=== PATIENT | female | born 1930 | race Caucasian/White ===

== ENCOUNTER 2016-12-01 18:42 | Inpatient (IN) | payer MEDICARE, MEDICAID ==
[~2016-12-01] VITALS: Ht 167.6 cm; Wt 91.2 kg
--- NOTE | 2016-12-01 18:45 | NUR ---
PT ADELINA FROM [facility] FOR WORSENING BILATERAL LOWER EXTREMITY SWELLING AND REDNESS X 2 DAYS. DENIES FEVER. DENIES SOB. SATING AT 97% RA. VSS. PT AOOX.3. MD AT FOR EVAL. SAFETY AND COMFORT MEASURES PROVIDED. WILL MONITOR.
--- NOTE | 2016-12-01 18:50 | NUR ---
SHOW DOG TRAINER ETA IS 20 MINUTES
--- NOTE | 2016-12-01 18:50 | NUR ---
IV ACCESS STARTED. BLOOD DRAWN FOR LABS.
[2016-12-01] MEDS ORDERED: FUROSEMIDE 40 MG/4 ML VIAL ONE (18:51)
--- NOTE | 2016-12-01 18:56 | NUR ---
AGUSTINA AT BS.
[2016-12-01 18:58] LABS: BASOPHILS # (AUTO) 0.1 /CMM (0.0-0.2); BASOPHILS % (AUTO) 1.3 % (0.0-2.0); EOSINOPHILS # (AUTO) 0.3 /CMM (0.0-0.7); EOSINOPHILS % (AUTO) 3.6 % (0.0-6.0); HEMATOCRIT 36 % (33-45); HEMOGLOBIN 12.3 g/dL (11.5-14.8); LYMPHOCYTES # (AUTO) 2.1 /CMM (0.8-4.8); LYMPHOCYTES % (AUTO) 26.5 % (20.0-44.0); MEAN CORPUSCULAR HEMOGLOBIN 32 PG (26.0-33.0); MEAN CORPUSCULAR HGB CONC 34 g/dl (31.0-36.0); MEAN CORPUSCULAR VOLUME 93 fL (82-100); MONOCYTES # (AUTO) 0.5 /CMM (0.1-1.30); MONOCYTES % (AUTO) 6.3 % (2.0-12.0); NEUTROPHILS # (AUTO) 4.8 /CMM (1.8-8.9); NEUTROPHILS % (AUTO) 62.3 % (43.0-81.0); PLATELET COUNT (AUTO) 264 /CMM (150-450); RDW COEFFICIENT OF VARIATION 12.5 (11.5-15.0); WHITE BLOOD COUNT (AUTO) 7.8 K/uL (4.3-11.0)
[2016-12-01] MEDS ORDERED: BENA20TA2 PO (18:58)
[2016-12-01] MEDS ORDERED: CHOL20004 PO (18:58)
[2016-12-01] MEDS ORDERED: PRAV10TA40 PO (18:58)
[2016-12-01] MEDS ORDERED: TRAM50TA2 PO (18:58)
[2016-12-01] MEDS ORDERED: FURO20TA4 PO (18:58)
[2016-12-01] MEDS ORDERED: RIVA10TA PO (18:58)
[2016-12-01] MEDS ORDERED: OMEP20TA68 PO (18:58)
[2016-12-01] MEDS ORDERED: ESCI10TA PO (18:58)
[2016-12-01] MEDS ORDERED: METO-304 PO (18:58)
[2016-12-01] MEDS ORDERED: POTA-88 PO (18:58)
[2016-12-01] MEDS ORDERED: FUROSEMIDE 40 MG/4 ML VIAL IV ONE (19:00)
[2016-12-01 19:09] LABS: CALCIUM, SERUM 9.1 mg/dL (8.5-10.1); CARBON DIOXIDE 31 mmol/L (21-32); CHLORIDE 103 mmol/L (98-107); CREATININE 0.9 mg/dL (0.6-1.3); GLUCOSE 142 mg/dL (74-106); POTASSIUM 4.6 mmol/L (3.5-5.1); SODIUM SERUM 139 mmol/L (136-145); UREA NITROGEN, BLOOD 18 mg/dL (7-18)
--- NOTE | 2016-12-01 19:10 | NUR ---
REPORT REC'D FROM ZORAIDA DEAN FOR SANDIE.
[2016-12-01 19:16] LABS: TROPONIN I < 0.017 ng/mL (0.00-0.056)
[2016-12-01 19:23] LABS: INR 1.09 (0.87-1.13); PROTHROMBIN TIME 11.3 SECS (9.5-12.7)
[2016-12-01 19:27] LABS: ALANINE AMINOTRANSFERASE 14 U/L (12-78); ALBUMIN 3.5 g/dL (3.4-5.0); ALKALINE PHOSPHATASE 95 U/L (46-116); ASPARTATE AMINOTRANSFERASE 17 U/L (15-37); B-TYPE NATRIURETIC PEPTIDE 1112 PG/ML (0-125); BILIRUBIN,DIRECT 0.2 mg/dL (0.0-0.2); BILIRUBIN,TOTAL 0.9 mg/dL (0.2-1.0)
[2016-12-01 19:28] LABS: TOTAL PROTEIN, SERUM 7.4 g/dL (6.4-8.2)
--- NOTE | 2016-12-01 19:35 | NUR ---
PAGED DR BHAVIK ROJAS
--- NOTE | 2016-12-01 19:47 | NUR ---
US TECH IS AT THE BEDSIDE.
--- NOTE | 2016-12-01 20:21 | NUR ---
PAGED DR. ROJAS SECOND TIME. WAITING FOR CALL BACK
--- NOTE | 2016-12-01 20:37 | NUR ---
PT WAS CLEANED NEW DIAPER APPLIED. SM BM NOTED.
--- NOTE | 2016-12-01 21:13 | NUR ---
CALLING REPORT TO TELE NURSE.
[2016-12-01 21:30] VITALS: BP 100/62
--- NOTE | 2016-12-01 21:30 | NUR ---
FILTER PRESS TENDER HEAD ADMITTING NOTES: ADMITTED AN 86 YO FEMALE PATIENT WHO WAS BROUGHT TO THE ER FOR BLE SWELLING X 2 DAYS. PATIENT WAS BROUGHT TO TELE FLOOR VIA GURDYLLAN, AOX4, ON O2 AT 3 LPM VIA NC. BREATHING AT RATE OF 22-24 PER MINUTE, BREATH SOUNDS CLEAR, NO WHEEZING OR SIGNS OF CONGESTION NOTED. LOWER LUNG FIELD SOUNDS ARE DIMINISHED. PATIENT ON TELE MONITORING WITH AFIB AT RATE OF 100S. PIV OVER RFA G 20 INTACT AND PATENT TO FLUSH. PATIENT VOIDED IN DIAPER AT THIS TIME, URINE APPEARS CLEAR AND YELLOW. PROVIDED FOR COMFORT AND SAFETY. BED IN LOWEST AND LOCKED POSITION, SIDERAILS UP X3. BED ALARM ON. CALL LIGHT WITHIN REACH. WILL CONT TO MONITOR.
[2016-12-02 03:35] LABS: ALBUMIN 3.3 g/dL (3.4-5.0); BILIRUBIN,TOTAL 1.1 mg/dL (0.2-1.0); CALCIUM, SERUM 8.7 mg/dL (8.5-10.1); CREATININE 0.9 mg/dL (0.6-1.3); POTASSIUM 4.2 mmol/L (3.5-5.1); TOTAL PROTEIN, SERUM 6.8 g/dL (6.4-8.2)
[2016-12-02 03:37] LABS: THYROID STIMULATING HORMONE 1.928 uIU/mL (0.358-3.74)
[2016-12-02 04:15] VITALS: BP 120/96
--- NOTE | 2016-12-02 06:51 | NUR ---
PBX MECHANIC CLOSING NOTES: PATIENT IN BED, AOX3, ON O2 AT 3 LPM VIA NC, BREATHING AT RATE OF 22-26 PER MINUTE, WITH SLIGHT EXPIRATORY WHEEZING AT THIS TIME. O2 SATURATION AT 99%. PATIENT STATES THAT SHE CANNOT TOLERATE HAVING HER HEAD OF BED LOW, BUT STATES SHE FELS MUCH BETTER BREATHING WHILE HOB IS ELEVATED. PIV OVER RFA G 20 INTACT AND PATENT TO FLUSH. PROVIDED FOR COMFORT AND SAFETY. BED IN LOWEST AND LOCKED POSITION. SIDERAILS UP X3. BED ALARM ON. WILL ENDORSE TO AM RN FOR SANDIE.
[2016-12-02 06:53] VITALS: BP 99/51
[2016-12-02 08:00] VITALS: BP 133/64
--- NOTE | 2016-12-02 08:02 | NUR ---
RN AM NOTES RECEIVED PATIENT IN BED ASLEEP, BUT EASILY AROUSABLE. PATIENT STILL REQUESTING TO SLEEP BECAUSE SHE DID NOT SLEEP WELL, DUE TO BEING NEWLY ADMITTED TO HOSPITAL "PAST HER NORMAL BEDTIME." PATIENT IN STABLE CONDITION. WILL CONTINUE TO MONITOR.
[2016-12-02] MEDS: FUROSEMIDE 20 MG/2 ML VIAL IV SCH (08:36)
[2016-12-02] MEDS: ATORVASTATIN 10 MG TABLET PO SCH (08:36)
[2016-12-02] MEDS ORDERED: FUROSEMIDE 20 MG TABLET PO SCH (09:16)
[2016-12-02] MEDS ORDERED: METOPROLOL SUCCINATE 50 MG TAB.SR.24H PO SCH (09:19)
[2016-12-02] MEDS: ESCITALOPRAM OXALATE (10 MG) 10 MG TABLET PO SCH (09:23)
[2016-12-02] MEDS ORDERED: TRAMADOL HCL 50 MG TABLET PO PRN (09:30)
[2016-12-02] MEDS: POTASSIUM CHLORIDE 20 MEQ TAB.PRT.SR PO SCH (09:47)
[2016-12-02] MEDS: CHOLECALCIFEROL 1,000 UNIT TABLET (VIT D3) PO SCH (09:47)
[2016-12-02] MEDS: BENAZEPRIL HCL 20 MG TABLET PO SCH (09:47)
[2016-12-02] MEDS: PANTOPRAZOLE 40 MG TABLET.DR PO SCH (09:47)
[2016-12-02 10:18] VITALS: BP 133/64
--- NOTE | 2016-12-02 12:53 | NUR ---
WOUND CARE CONSULT: PT PRESENTS WITH INCONTINENCE. RECOMMEND Z GUARD FOR SKIN PROTECTION. PT NOTED TO BE INCONTINENT OF LARGE AMOUNT OF URINE AND SMALL AMOUNT OF SOFT STOOL. BEDBATH GIVEN BY FIELD APPLICATION ENGINEER. PT ALSO NOTED TO HAVE LOWER LEG REDNESS AND SWELLING WITH SLIGHT WARMTH TO TOUCH. LEGS ELEVATED ON PILLOWS. PT ON JIMMIE COMFORT GEL MATTRESS. GABBI SCORE IS 15. ALL SKIN PROTECTION RECOMMENDATIONS DISCUSSED WITH NURSING STAFF. MD IN AGREEMENT WITH PLAN OF CARE. Addendum: 12/02/16 at 1256 by JESSICA DAVIDSON WNDNU Amended: Links added.
[2016-12-02] MEDS ORDERED: Z GUARD REMEDY 2 OZ OINT TP PRN (13:00)
--- NOTE | 2016-12-02 13:06 | NUR ---
PER TIRE SERVICE TECHNICIAN, PATIENT HAS NO REDNESS ON THE BACK OR GLUTES. WILL CONTINUE TO MONITOR.
[2016-12-02] MEDS: Z GUARD REMEDY 2 OZ OINT TP SCH (15:48)
[2016-12-02 16:00] VITALS: BP 103/74
[2016-12-02] MEDS: RIVAROXABAN 15 MG TABLET PO SCH (16:12)
--- NOTE | 2016-12-02 19:30 | NUR ---
RNN OTE; RECEIVED PT IN BED AWAKE AND ALERT,. OX4. BREATHING EVENLY. NO SOB. NO DISTRESS . SKIN WARM AND DRY. STILL W/ SWOLLEN LEGS. ELEVATED ON THE PILLOWS. NO C/O PAIN OR DISCOMFORT. NEEDS ATTENDED. CALL LIGHT WITHIN REACH. WILL CONT TO MONITOR
--- NOTE | 2016-12-02 19:46 | NUR ---
RN PM NOTES PATIENT IN BED, RELAXING, WITH NO COMPLAINTS OF PAIN, SOB OR DISCOMFORT. LUNGS CLEAR THROUGHOUT. ALL CARE RENDERED, ALL NEED MET. ENDORSED TO NEXT SHIFT.
[2016-12-02 20:00] VITALS: BP 105/68
--- NOTE | 2016-12-03 06:40 | NUR ---
RN NOTE; PT IN BED AWAKE AND ALERT. BREATHING EVENLY. NO SOB. NO DISTRESS. NO ACUTE CHANGES DURING THE NIGHT . DENIED DYSPNEA. STILL W/ SWOLLEN BLEs . ELEVATED ON THE PILLOWS. NEEDS ATTENDED . ASSISTED W/ ADLS. CALL LIGHT WITHIN REACH. WILL CONT TO MONITOR AND WILL ENDORSE TO AM SHIFT FOR SANDIE.
--- NOTE | 2016-12-03 07:30 | NUR ---
RECEIVED PT. THIS AM ALERT AND ORIENTEDX4,NO COMPLAINTS OFFERED.
[2016-12-03 08:00] VITALS: BP 102/74
[2016-12-03] MEDS: BENAZEPRIL HCL 20 MG TABLET PO SCH (09:00)
[2016-12-03] MEDS: CHOLECALCIFEROL 1,000 UNIT TABLET (VIT D3) PO SCH (10:12)
[2016-12-03] MEDS: POTASSIUM CHLORIDE 20 MEQ TAB.PRT.SR PO SCH (10:12)
[2016-12-03] MEDS: ESCITALOPRAM OXALATE (10 MG) 10 MG TABLET PO SCH (10:13)
[2016-12-03] MEDS: ATORVASTATIN 10 MG TABLET PO SCH (10:13)
[2016-12-03] MEDS: PANTOPRAZOLE 40 MG TABLET.DR PO SCH (10:13)
[2016-12-03] MEDS: FUROSEMIDE 20 MG/2 ML VIAL IV SCH (10:13)
[2016-12-03] MEDS: Z GUARD REMEDY 2 OZ OINT TP SCH (10:15)
[2016-12-03 16:00] VITALS: BP 108/67
[2016-12-03] MEDS: METOPROLOL SUCCINATE 25 MG TAB.SR.24H PO SCH (17:03)
[2016-12-03] MEDS: RIVAROXABAN 15 MG TABLET PO SCH (17:04)
--- NOTE | 2016-12-03 18:00 | NUR ---
RECEIVED CALL FROM [facility] REGARDING MRSA IN RT. NARES,TO ENDORSE TO EVE. CONWAY.
--- NOTE | 2016-12-03 19:30 | NUR ---
RN NOTE; RECEIVED PT IN BED AWAKE AND ALERT,. OX4. BREATHING EVENLY. NO SOB. NO DISTRESS . SKIN WARM AND DRY. SUBSIDED BLE SWELLING. ELEVATED ON THE PILLOWS. NO C/O PAIN OR DISCOMFORT. NEEDS ATTENDED. CALL LIGHT WITHIN REACH. WILL CONT TO MONITOR
[2016-12-03 20:00] VITALS: BP 106/73
[2016-12-03] MEDS: MUPIROCIN OINT 2% 22 GM TUBE SCH (21:27)
[2016-12-03 21:34] VITALS: BP 106/73
--- NOTE | 2016-12-04 06:15 | NUR ---
RN NOTE; PT IN BED SLEEPING AROUSES EASILY. BREATHING EVENLY. NO SOB. NO DISTRESS. NO ACUTE CHANGES DURING THE NIGHT . DENIED DYSPNEA. . NEEDS ATTENDED . ASSISTED W/ ADLS. CALL LIGHT WITHIN REACH. WILL CONT TO MONITOR AND WILL ENDORSE TO AM SHIFT FOR SANDIE.
--- NOTE | 2016-12-04 07:30 | NUR ---
RECEIVED PT. ALERT AND ORIENTED X4.VS STABLE.
[2016-12-04 08:00] VITALS: BP 122/68
[2016-12-04] MEDS ORDERED: SPIRONOLACTONE 25 MG TABLET PO SCH (09:00)
--- NOTE | 2016-12-04 10:30 | NUR ---
DR. ROJAS IN WITH DC ORDERS GIVEN.
[2016-12-04] MEDS: MUPIROCIN OINT 2% 22 GM TUBE SCH (10:32)
[2016-12-04] MEDS: FUROSEMIDE 20 MG/2 ML VIAL IV SCH (10:32)
[2016-12-04] MEDS: POTASSIUM CHLORIDE 20 MEQ TAB.PRT.SR PO SCH (10:33)
[2016-12-04] MEDS: ATORVASTATIN 10 MG TABLET PO SCH (10:33)
[2016-12-04] MEDS: CHOLECALCIFEROL 1,000 UNIT TABLET (VIT D3) PO SCH (10:33)
[2016-12-04] MEDS: METOPROLOL SUCCINATE 25 MG TAB.SR.24H PO SCH (10:34)
[2016-12-04] MEDS: ESCITALOPRAM OXALATE (10 MG) 10 MG TABLET PO SCH (10:34)
[2016-12-04] MEDS: PANTOPRAZOLE 40 MG TABLET.DR PO SCH (10:34)
[2016-12-04] MEDS: Z GUARD REMEDY 2 OZ OINT TP SCH (10:35)
--- NOTE | 2016-12-04 15:50 | NUR ---
DC PHOTOS TAKEN,TOLERATED WELL.HEP LOCK OUT.
[2016-12-04 16:00] VITALS: BP 117/79
--- NOTE | 2016-12-04 16:50 | NUR ---
AMBULANCE HERE.GIVEN REPORT.REPORT ADDITIONALLY CALLED TO PIO AT [facility].TAKEN VIA AMB. TO FACILITY.
[2016-12-04] MEDS: RIVAROXABAN 15 MG TABLET PO SCH (17:23)
[2016-12-05] MEDS ORDERED: DIGOXIN 0.125 MG TABLET PO SCH (13:00)
== END 2016-12-04 18:00 | DRG 291 ==
LOC: ER 18:49 → TELE 21:02 → MED 12-02 08:09
PROVIDERS: ADMIT Internal Medicine; ATTEND Internal Medicine
DX: I11.0 Hypertensive heart disease with heart failure (principal); G93.40 Encephalopathy, unspecified; I50.33 Acute on chronic diastolic (congestive) heart failure; E78.00 Pure hypercholesterolemia, unspecified; E55.9 Vitamin D deficiency, unspecified; I25.10 Atherosclerotic heart disease of native coronary artery without angina pectoris; I25.2 Old myocardial infarction; F02.80 Dementia in other diseases classified elsewhere, unspecified severity, without behavioral disturbance, psychotic disturbance, mood disturbance, and anxiety; G30.9 Alzheimer's disease, unspecified; I48.2 Chronic atrial fibrillation; I87.2 Venous insufficiency (chronic) (peripheral); Z86.73 Personal history of transient ischemic attack (TIA), and cerebral infarction without residual deficits; E66.9 Obesity, unspecified; F32.9 Major depressive disorder, single episode, unspecified; Z68.32 Body mass index [BMI] 32.0-32.9, adult; Z88.6 Allergy status to analgesic agent
CPT/HCPCS: 36415; 71010-TC; 80048-TC; 80053-TC; 80076-TC; 83880; 84443-TC; 84484-TC; 85025-TC; 85730-TC; 87081-TC; 93307-TC; 93970-TC; 94799-TC; 97001-TC; A4606; J1940; Z7610

== ENCOUNTER 2018-04-23 11:58 | Emergency (ER) | payer MEDICARE, MEDICAID ==
[~2018-04-23] VITALS: Ht 167.6 cm; Wt 92.1 kg
[~2018-04-23 11:58] MED LIST: BENA20TA9 PO; CHOL20004 PO; ESCI10TA PO; FURO20TA4 PO; METO-357 PO; OMEP20TA5 PO; POTA-88 PO; RIVA10TA PO; TRAM50TA2 PO
--- NOTE | 2018-04-23 12:00 | NUR ---
AAOX3, [facility]IB[facility] SENT BY DR ROJAS C/O REDNESS AND SWELLING TO BILATERAL LOWER EXTREMITIES. RR IS EVEN AND UNLABORED WITH NAD NOTED. SKIN IS WARM AND DRY. AWAITING MD FOR EVAL.
--- NOTE | 2018-04-23 12:27 | NUR ---
CALLED OFFICE OF DR ROJAS, WAS PAGED.
--- NOTE | 2018-04-23 13:29 | NUR ---
CALLED [facility] FOR THIS PATIENT ETA [id number] TRIP #[id number]
--- NOTE | 2018-04-23 14:45 | NUR ---
Patient discharged to home VIA AMBULANZ in stable condition. Written and verbal after care instructions given. Patient verbalizes understanding of instruction.
[2018-04-23 15:13] VITALS: BP 117/71
[2018-04-24] MEDS ORDERED: SENN-167 PO (13:20)
[2018-04-24] MEDS ORDERED: ATOR10TA PO (13:20)
[2018-04-24] MEDS ORDERED: ERGO500014 PO (13:20)
[2018-04-24] MEDS ORDERED: PANT40TA2 PO (13:20)
[2018-04-24] MEDS ORDERED: SPIR50TA5 PO (13:20)
== END 2018-04-23 15:14 | disposition home or self-care (01) ==
LOC: ER 11:59
DX: S80.822A Blister (nonthermal), left lower leg, initial encounter (principal); S80.821A Blister (nonthermal), right lower leg, initial encounter; R60.0 Localized edema; I11.0 Hypertensive heart disease with heart failure; I50.9 Heart failure, unspecified; I48.91 Unspecified atrial fibrillation; I25.2 Old myocardial infarction; E78.00 Pure hypercholesterolemia, unspecified; Z88.0 Allergy status to penicillin; Z88.6 Allergy status to analgesic agent; Z79.899 Other long term (current) drug therapy; X58.XXXA Exposure to other specified factors, initial encounter; Y93.89 Activity, other specified; Y92.89 Other specified places as the place of occurrence of the external cause; Y99.8 Other external cause status
CPT/HCPCS: A4606; Z7610

== ENCOUNTER 2018-04-24 12:41 | Inpatient (IN) | payer MEDICARE, MEDICAID ==
[~2018-04-24] VITALS: Ht 162.6 cm; Wt 86.2 kg
--- NOTE | 2018-04-24 12:45 | NUR ---
AAOX3, BIBPA FROM [facility] SENT BY DR ROJAS C/O BILATERAL LOWER EXTREMITIES REDNESS AND BLISTERS. RR IS EVEN AND UNLABORED WITH NAD NOTED. SKIN IS WARM AND DRY. AWAITING MD FOR EVAL.
[2018-04-24] MEDS ORDERED: PANT40TA2 PO (13:20)
[2018-04-24] MEDS ORDERED: SENN-167 PO (13:20)
[2018-04-24] MEDS ORDERED: ATOR10TA PO (13:20)
[2018-04-24] MEDS ORDERED: SPIR50TA5 PO (13:20)
[2018-04-24] MEDS ORDERED: ERGO500014 PO (13:20)
--- NOTE | 2018-04-24 13:27 | NUR ---
IV ACCESS STARTED. BLOOD DRAWN FOR LABS.
[2018-04-24 13:28] LABS: BASOPHILS # (AUTO) 0.1 /CMM (0.0-0.2); BASOPHILS % (AUTO) 0.7 % (0.0-2.0); EOSINOPHILS % (AUTO) 2.4 % (0.0-6.0); HEMATOCRIT 37 % (33-45); HEMOGLOBIN 12.8 g/dL (11.5-14.8); LYMPHOCYTES % (AUTO) 27.6 % (20.0-44.0); MEAN CORPUSCULAR HEMOGLOBIN 32 PG (26.0-33.0); MEAN CORPUSCULAR HGB CONC 34 g/dl (31.0-36.0); MEAN CORPUSCULAR VOLUME 93 fL (82-100); MONOCYTES # (AUTO) 0.5 /CMM (0.1-1.30); MONOCYTES % (AUTO) 7.5 % (2.0-12.0); NEUTROPHILS # (AUTO) 4.5 /CMM (1.8-8.9); NEUTROPHILS % (AUTO) 61.8 % (43.0-81.0); PLATELET COUNT (AUTO) 248 /CMM (150-450); RDW COEFFICIENT OF VARIATION 13.3 (11.5-15.0); RED BLOOD CELL COUNT(AUTO) 4.02 MIL/uL (4.0-5.2); WHITE BLOOD COUNT (AUTO) 7.3 K/uL (4.3-11.0)
[2018-04-24 13:35] LABS: CALCIUM, SERUM 9.1 mg/dL (8.5-10.1); CARBON DIOXIDE 31 mmol/L (21-32); CHLORIDE 102 mmol/L (98-107); CREATININE 0.9 mg/dL (0.6-1.3); GLUCOSE 70 mg/dL (74-106); POTASSIUM 4.5 mmol/L (3.5-5.1); SODIUM SERUM 135 mmol/L (136-145); UREA NITROGEN, BLOOD 15 mg/dL (7-18)
--- NOTE | 2018-04-24 13:45 | NUR ---
DR. CRYSTAL HOWARD.
[2018-04-24] MEDS ORDERED: VANCOMYCIN 1.25 GM in IV D5W 500 ML IV ONE (14:00)
--- NOTE | 2018-04-24 14:46 | NUR ---
BED 201
--- NOTE | 2018-04-24 15:09 | NUR ---
REPORT GIVEN TO CLARENCE CONWAY FOR MS.
[2018-04-24 16:00] VITALS: BP 122/79
[2018-04-24] MEDS ORDERED: TRAMADOL HCL 50 MG TABLET PO PRN (16:30)
[2018-04-24] MEDS ORDERED: HOME MED MISCELLANEOUS XX SCH (16:30)
[2018-04-24] MEDS ORDERED: FEE PK DOSING 1 MIN EA MC ONE (16:52)
[2018-04-24] MEDS: RIVAROXABAN 15 MG TABLET PO SCH (17:09)
--- NOTE | 2018-04-24 18:26 | NUR ---
MARINE DIESEL TECHNICIAN PATIENT A/OX3, ADMITTED UNDER DR. ROJAS, RECEIVED ADMISSION ORDERS, ORDERS NOTED AND CARRIED OUT. PHYSICAL ASSESSMENT COMPLETED, PHOTOS OF BLE TAKEN AND PLACED IN CHART. INVENTORY DONE. NEEDS ATTENDED AND MET, KEPT COMFORTABLE, CALL LIGHT WITHIN REACH, WILL ENDORSE TO ADJUNCT LECTURER FOR SANDIE.
--- NOTE | 2018-04-24 19:15 | NUR ---
RN INITIAL NOTES: RECEIVED REPORT FROM CLARENCE CONWAY, PT IN BED, AWAKE, A/O X3 BUT WITH PERIODIC EPISODE OF CONFUSION. PT HAS RIGHT AC G 20 PATENT AND FLUSHING WELL, ON HL, NOTED WITH DRY BLOOD AROUND THE SITE, NO S/S OF INFILTRATION OR REDNESS NOTED. DISCUSSED PLAN OF CARE TO THE PT. ENCOURAGE TO ELEVATE LEGS. PT STATED SHE WAS TOLD THAT DR ROJAS IS COMING TODAY, INFORMED PT THERE'S NO DEFINITE TIME FOR PHYSICIAN IN MAKING THEIR ROUNDS, COULD BE TONIGHT OR TOMORROW. CLEANSED BILATERAL LEG WITH NS PAT DRY BUT PT REFUSING TO COVER LEGS WITH DRESSING, STATED SHE WILL WAIT FOR THE DOCTOR. EDUCATION PROVIDED TO PT REGARDING INFECTION PREVENTION, CONTAMINATION, PT REFUSED TO LISTEN. SAFETY PRECAUTIONS FOR FALL INITIATED, CALL LIGHT IN REACH, WILL CONTINUE MONITORING PT.
[2018-04-24 20:00] VITALS: BP 114/57
[2018-04-24] MEDS: CEFTRIAXONE 1 G in IV D5W 50 ML IV SCH (20:28)
--- NOTE | 2018-04-24 21:00 | NUR ---
RN NOTES: NO SACRAL REDNESS NOTED. BLE CELLULITIS AND BLISTER NOTED. PT ABLE TO MOVE AND WIGGLE TOES, BILATERAL PEDAL PULSES PALPABLE/PRESENT, PT DENIES ANY NUMBNESS TINGLING SENSATION ON HER LEGS BUT ADMIT THAT HER LEGS FEELS HEAVY.
[2018-04-24] MEDS: SENNOSIDES 8.6 MG TABLET PO SCH (21:07)
[2018-04-25] MEDS: VANCOMYCIN 0.75 GM in IV D5W 250 ML IV SCH ×2 (01:24→14:59)
--- NOTE | 2018-04-25 06:58 | NUR ---
RN CLOSING NOTES: PT IN BED, REMAINS A/O X3 WITH PERIODS OF CONFUSION. DENIES ANY SOB, REMAINS ON RA. DENIES ANY CHEST PAIN OR DISCOMFORT. IV ACCESS ON RIGHT AC G 20 REMAINS PATENT AND FLUSHING WELL, ON HL. BLE OFFLOADED, VS REMAINS STABLE, NEEDS ATTENDED. AWAITING WOUND CARE CONSULT. SAFETY PRECAUTIONS FOR FALL REMAINS ENGAGED, CALL LIGHT IN REACH, WILL ENDORSE TO DAY RN FOR CONTINUITY OF CARE.
[2018-04-25 07:20] LABS: BASOPHILS % (AUTO) 0.4 % (0.0-2.0); HEMATOCRIT 38 % (33-45); HEMOGLOBIN 12.2 g/dL (11.5-14.8); MEAN CORPUSCULAR HEMOGLOBIN 31 PG (26.0-33.0); MEAN CORPUSCULAR HGB CONC 33 g/dl (31.0-36.0); MEAN CORPUSCULAR VOLUME 96 fL (82-100); MONOCYTES # (AUTO) 0.6 /CMM (0.1-1.30); MONOCYTES % (AUTO) 6.2 % (2.0-12.0); NEUTROPHILS # (AUTO) 6.2 /CMM (1.8-8.9); NEUTROPHILS % (AUTO) 68.4 % (43.0-81.0); PLATELET COUNT (AUTO) 241 /CMM (150-450); RDW COEFFICIENT OF VARIATION 13.9 (11.5-15.0); RED BLOOD CELL COUNT(AUTO) 3.89 MIL/uL (4.0-5.2); WHITE BLOOD COUNT (AUTO) 9.1 K/uL (4.3-11.0)
--- NOTE | 2018-04-25 07:39 | NUR ---
RN OPENING NOTES RECEIVED PATIENT RESTING IN BED, A/OX3 WITH PERIODS OF CONFUSION. NO ACUTE DISTRESS, NO SOB, DENIED PAIN OR DISCOMFORT AT THIS TIME. IV SITE INTACT AND PATENT. KEPT PATIENT SAFE AND COMFORTABLE. BED IN LOW/LOCKED POSITION, SIDERAILS UPX2, CALL LIGHT IN REACH. WILL CONTINUE TO MONITOR ACCORDINGLY
[2018-04-25 07:40] LABS: CALCIUM, SERUM 9.3 mg/dL (8.5-10.1); CARBON DIOXIDE 28 mmol/L (21-32); CHLORIDE 102 mmol/L (98-107); CREATININE 0.9 mg/dL (0.6-1.3); GLUCOSE 118 mg/dL (74-106); POTASSIUM 3.7 mmol/L (3.5-5.1); SODIUM SERUM 140 mmol/L (136-145); UREA NITROGEN, BLOOD 13 mg/dL (7-18)
[2018-04-25 08:00] VITALS: BP 102/58
[2018-04-25] MEDS: POTASSIUM CHLORIDE 20 MEQ TAB.PRT.SR PO SCH (08:50)
[2018-04-25] MEDS: ATORVASTATIN 10 MG TABLET PO SCH (08:50)
[2018-04-25] MEDS: PANTOPRAZOLE 40 MG TABLET.DR PO SCH (08:50)
[2018-04-25] MEDS: FUROSEMIDE 20 MG/2 ML VIAL IV SCH (08:51)
[2018-04-25] MEDS: ESCITALOPRAM OXALATE (10 MG) 10 MG TABLET PO SCH (08:51)
[2018-04-25] MEDS: METOPROLOL SUCCINATE 50 MG TAB.SR.24H PO SCH (08:52)
[2018-04-25 16:00] VITALS: BP 101/66
[2018-04-25] MEDS: RIVAROXABAN 15 MG TABLET PO SCH (17:25)
--- NOTE | 2018-04-25 17:46 | NUR ---
Patient resides at [facility] [phone] . She is alert, ambulates with assistive device and requires assistance with adl's, not on homehealth service. She use oxygen at the [facility], she own a wheelchair, oxygen and hosp bed. Current dc plan is to dc back to [facility] vs [facility]. Addendum: 04/25/18 at 1747 by SAMIA ZARATE RN Amended: Links added.
--- NOTE | 2018-04-25 19:37 | NUR ---
PATIENT IN STABLE CONDITION. ALL NEEDS ATTENDED AND PROVIDED. ALL DUE MEDS GIVEN ORDERED. KEPT PATIEN SAFE AND COMFORTABLE. BED IN LOW/LOCKED POSITION, SIDERAILS UPX2, CALL LIGHT IN REACH. ENDORSED NO NIGHT RN FOR SANDIE.
--- NOTE | 2018-04-25 19:40 | NUR ---
RN INITIAL NOTES: RECEIVED REPORT FROM HECTOR CONWAY, PT IN BED, AWAKE, A/O X3 WITH PERIODIC EPISODE OF CONFUSION. PT HAS RIGHT AC G 20 PATENT AND FLUSHING WELL, ON HL, NO S/S OF INFILTRATION OR REDNESS NOTED. DISCUSSED PLAN OF CARE TO THE PT. ENCOURAGE TO ELEVATE LEGS. CLEANSED BILATERAL LEG WITH NS PAT DRY BUT PT REFUSING TO COVER LEGS WITH DRESSING, EDUCATION PROVIDED TO PT. SAFETY PRECAUTIONS FOR FALL INITIATED, CALL LIGHT IN REACH, WILL CONTINUE MONITORING PT.
[2018-04-25 20:00] VITALS: BP 107/66
[2018-04-25] MEDS: CEFTRIAXONE 1 G in IV D5W 50 ML IV SCH (20:05)
--- NOTE | 2018-04-25 20:48 | NUR ---
RN NOTES: PT HAD BOWEL MOVEMENT, SOFT, MODERATE AMOUNT, REFUSED FOR HER SENNOKOT SCHEDULED FOR TONIGHT.
[2018-04-25] MEDS: SENNOSIDES 8.6 MG TABLET PO SCH (21:01)
[2018-04-26] MEDS: VANCOMYCIN 0.75 GM in IV D5W 250 ML IV SCH ×2 (02:01→13:49)
--- NOTE | 2018-04-26 07:00 | NUR ---
RN CLOSING NOTES: PT IN BED, REMAINS A/O X3 WITH PERIODS OF CONFUSION. NO SOB NOTED, REMAINS ON RA. DENIES ANY CHEST PAIN OR DISCOMFORT. IV ACCESS ON RIGHT AC G 20 REMAINS PATENT AND FLUSHING WELL, ON HL. BLE OFFLOADED, VS REMAINS STABLE, NEEDS ATTENDED. AWAITING WOUND CARE CONSULT. SAFETY PRECAUTIONS FOR FALL REMAINS ENGAGED, CALL LIGHT IN REACH, WILL ENDORSE TO DAY RN FOR CONTINUITY OF CARE.
[2018-04-26 07:45] LABS: CALCIUM, SERUM 9.4 mg/dL (8.5-10.1); CARBON DIOXIDE 31 mmol/L (21-32); CHLORIDE 101 mmol/L (98-107); CREATININE 0.9 mg/dL (0.6-1.3); GLUCOSE 100 mg/dL (74-106); POTASSIUM 4.3 mmol/L (3.5-5.1); SODIUM SERUM 138 mmol/L (136-145); UREA NITROGEN, BLOOD 12 mg/dL (7-18)
[2018-04-26 08:00] VITALS: BP 122/72
[2018-04-26] MEDS: ATORVASTATIN 10 MG TABLET PO SCH (08:15)
[2018-04-26] MEDS: FUROSEMIDE 20 MG/2 ML VIAL IV SCH (08:15)
[2018-04-26] MEDS: ESCITALOPRAM OXALATE (10 MG) 10 MG TABLET PO SCH (08:15)
[2018-04-26] MEDS: PANTOPRAZOLE 40 MG TABLET.DR PO SCH (08:15)
[2018-04-26] MEDS: POTASSIUM CHLORIDE 20 MEQ TAB.PRT.SR PO SCH (08:15)
[2018-04-26] MEDS: METOPROLOL SUCCINATE 50 MG TAB.SR.24H PO SCH (08:16)
--- NOTE | 2018-04-26 08:52 | NUR ---
MS RN Initial notes Patient is sitting up in bed, had breakfast with fair appetite. Breathing on room air, tolerating well. BLE with redness and warmth, denies pain. Due meds given, call light within reach. Will cont to monitor.
[2018-04-26 16:00] VITALS: BP 101/54
[2018-04-26] MEDS: RIVAROXABAN 15 MG TABLET PO SCH (16:57)
--- NOTE | 2018-04-26 18:43 | NUR ---
MS RN Closing notes Patient is A/O x3, forgetful at times, reorient easily. Cooperative and compliant taking her medications. Continued on IV Vancomycin for BLE cellulitis as ordered, afebrile this shift. PT following for ambulation. Elevate legs with pillows. Seen by Dr. Burgos today, labs in the morning. Assisted with turning and repositioning in bed, denies pain. Call light within reach. Will cont to monitor.
[2018-04-26] MEDS: CEFTRIAXONE 1 G in IV D5W 50 ML IV SCH (19:39)
--- NOTE | 2018-04-26 19:40 | NUR ---
RN INITIAL NOTES: RECEIVED REPORT FROM ANYA CONWAY, PT IN BED, AWAKE, A/O X3 HOWEVER FORGETFUL, PT HAS RIGHT AC G 20 PATENT AND FLUSHING WELL, ON HL, NO S/S OF INFILTRATION OR REDNESS NOTED. ENCOURAGE TO ELEVATE LEGS.SAFETY PRECAUTIONS FOR FALL INITIATED, CALL LIGHT IN REACH, WILL CONTINUE MONITORING PT.
[2018-04-26 20:00] VITALS: BP 128/81
[2018-04-26] MEDS: SENNOSIDES 8.6 MG TABLET PO SCH (21:45)
--- NOTE | 2018-04-26 21:45 | NUR ---
rn notes: pt refused earle stated she had 2large bm today. education provided to the pt
--- NOTE | 2018-04-26 23:24 | NUR ---
RN NOTES: SEEN PT SLEEPING COMFORTABLY, RESPIRATION EVEN AND UNLABORED,BLE REMAINS OFFLOADED.
[2018-04-27] MEDS: VANCOMYCIN 0.75 GM in IV D5W 250 ML IV SCH ×2 (01:45→14:40)
--- NOTE | 2018-04-27 06:58 | NUR ---
rn closing notes: pt in bed, awake, remains a/o x3 although forgetful, iv access remains patent and flushing well, on hl. ble remains offloaded on 2pillows.pt denies any pain or discomfort at this time. vs remains stable, needs attended. safety precautions for fall initiated, call light in reach, will endorse to day rn for continuity of care.
[2018-04-27 07:41] LABS: CALCIUM, SERUM 9.3 mg/dL (8.5-10.1); CARBON DIOXIDE 29 mmol/L (21-32); CHLORIDE 101 mmol/L (98-107); CREATININE 0.8 mg/dL (0.6-1.3); GLUCOSE 99 mg/dL (74-106); POTASSIUM 4.5 mmol/L (3.5-5.1); SODIUM SERUM 138 mmol/L (136-145); UREA NITROGEN, BLOOD 16 mg/dL (7-18)
--- NOTE | 2018-04-27 07:51 | NUR ---
MS RN Initial notes Patient is sitting up in bed, breathing on room air, tolerating well. BLE still with redness and warmth, denies pain. Call light within reach. Maintained safety, will cont to monitor.
[2018-04-27 07:52] LABS: THYROID STIMULATING HORMONE 1.897 uIU/mL (0.358-3.74)
[2018-04-27 08:00] VITALS: BP 107/67
[2018-04-27] MEDS: PANTOPRAZOLE 40 MG TABLET.DR PO SCH (08:18)
[2018-04-27] MEDS: METOPROLOL SUCCINATE 50 MG TAB.SR.24H PO SCH (08:18)
[2018-04-27] MEDS: ESCITALOPRAM OXALATE (10 MG) 10 MG TABLET PO SCH (08:18)
[2018-04-27] MEDS: FUROSEMIDE 20 MG/2 ML VIAL IV SCH (08:18)
[2018-04-27] MEDS: POTASSIUM CHLORIDE 20 MEQ TAB.PRT.SR PO SCH (08:18)
[2018-04-27] MEDS: ATORVASTATIN 10 MG TABLET PO SCH (08:18)
[2018-04-27] MEDS ORDERED: Z GUARD REMEDY 2 OZ OINT TP PRN (09:00)
[2018-04-27] MEDS ORDERED: Z GUARD REMEDY 2 OZ OINT TP SCH (09:00)
[2018-04-27 16:00] VITALS: BP 97/63
[2018-04-27] MEDS: RIVAROXABAN 15 MG TABLET PO SCH (16:20)
[2018-04-27] MEDS ORDERED: LACTOBACILLUS RHAMNOSUS GG 1 EACH CAP.SPRINK PO SCH (17:00)
--- NOTE | 2018-04-27 17:51 | NUR ---
MS instant printer operator notes Patient has been cleared for discharge to SNF by . VS remains stable, afebrile during shift, denies pain. Seen by PT/OT today for ambulation and exercises, tolerating well. Bilateral legs cellulitis dressing changed today by Dr. Rosario/podiatry. Called the [facility]/facility for report, spoke with ZORAIDA Baxter. Patient left hosp in stable condition via ambulance.
== END 2018-04-27 17:30 | DRG 602 ==
LOC: ER 12:43 → MEDSG2 15:02
PROVIDERS: ADMIT Internal Medicine; ATTEND Internal Medicine
DX: L03.115 Cellulitis of right lower limb (principal); G93.40 Encephalopathy, unspecified; I13.0 Hypertensive heart and chronic kidney disease with heart failure and stage 1 through stage 4 chronic kidney disease, or unspecified chronic kidney disease; L03.116 Cellulitis of left lower limb; Z86.73 Personal history of transient ischemic attack (TIA), and cerebral infarction without residual deficits; I25.2 Old myocardial infarction; Z88.0 Allergy status to penicillin; Z87.891 Personal history of nicotine dependence; Z88.8 Allergy status to other drugs, medicaments and biological substances; Z79.899 Other long term (current) drug therapy; I25.10 Atherosclerotic heart disease of native coronary artery without angina pectoris; F03.90 Unspecified dementia, unspecified severity, without behavioral disturbance, psychotic disturbance, mood disturbance, and anxiety; K21.9 Gastro-esophageal reflux disease without esophagitis; I50.9 Heart failure, unspecified; I11.0 Hypertensive heart disease with heart failure; I87.2 Venous insufficiency (chronic) (peripheral); I87.8 Other specified disorders of veins; I48.0 Paroxysmal atrial fibrillation; T14.8XXA Other injury of unspecified body region, initial encounter; X58.XXXA Exposure to other specified factors, initial encounter; Y92.9 Unspecified place or not applicable; N18.3 Chronic kidney disease, stage 3 (moderate)
CPT/HCPCS: 36415; 80048-TC; 80202-TC; 83880; 84443-TC; 85025-TC; 87070-TC; 87081-TC; 97112-TC; 97116-TC; 97530-TC; A4606; J0696; J1940; J3370; J7050; J7060; Z7610

== ENCOUNTER 2018-09-15 16:41 | Inpatient (IN) | payer MEDICARE, MEDICAID ==
[~2018-09-15] VITALS: Ht 167.6 cm; Wt 103.0 kg
[~2018-09-15 16:41] MED LIST changes: +ATOR10TA PO; -BENA20TA9 PO; -CHOL20004 PO; +CYAN10006 IM; +FURO-144 PO; -FURO20TA4 PO; -OMEP20TA5 PO; +PANT40TA2 PO; +SENN-168 PO; +SPIR50TA5 PO
--- NOTE | 2018-09-15 16:45 | NUR ---
PT BIBPA C/O BILATERAL LE CELLULITIS, PT IS AAOX4, NOT IN RESPIRATORY DISTRESS, VS STABLE, KEPT RESTED AND COMFORTABLE.
[2018-09-15] MEDS ORDERED: VANCOMYCIN 1 GM in IV D5W 250 ML IV ONE (17:00)
[2018-09-15] MEDS ORDERED: LEVOFLOXACIN 750 MG /D5W 150ML 150 ML IV ONE (17:00)
--- NOTE | 2018-09-15 17:05 | NUR ---
SEEN AND EXAMINED BY DR. ORO. LABS DRAWNED AND SENT TO LAB.
[2018-09-15 17:11] LABS: BASOPHILS # (AUTO) 0.1 /CMM (0.0-0.2); BASOPHILS % (AUTO) 1.1 % (0.0-2.0); EOSINOPHILS % (AUTO) 3.8 % (0.0-6.0); HEMATOCRIT 35 % (33-45); HEMOGLOBIN 11.4 g/dL (11.5-14.8); LYMPHOCYTES # (AUTO) 1.9 /CMM (0.8-4.8); LYMPHOCYTES % (AUTO) 20.4 % (20.0-44.0); MEAN CORPUSCULAR HGB CONC 33 g/dl (31.0-36.0); MEAN CORPUSCULAR VOLUME 96 fL (82-100); MONOCYTES # (AUTO) 0.7 /CMM (0.1-1.30); MONOCYTES % (AUTO) 7.6 % (2.0-12.0); NEUTROPHILS # (AUTO) 6.3 /CMM (1.8-8.9); NEUTROPHILS % (AUTO) 67.1 % (43.0-81.0); PLATELET COUNT (AUTO) 264 /CMM (150-450); RED BLOOD CELL COUNT(AUTO) 3.64 MIL/uL (4.0-5.2); WHITE BLOOD COUNT (AUTO) 9.4 K/uL (4.3-11.0)
--- NOTE | 2018-09-15 17:13 | NUR ---
RADIOLOGY AT BEDSIDE FOR XRAY.
[2018-09-15 17:18] LABS: CALCIUM, SERUM 8.8 mg/dL (8.5-10.1); CARBON DIOXIDE 34 mmol/L (21-32); CHLORIDE 102 mmol/L (98-107); CREATININE 0.8 mg/dL (0.6-1.3); GLUCOSE 100 mg/dL (74-106); POTASSIUM 3.9 mmol/L (3.5-5.1); SODIUM SERUM 140 mmol/L (136-145); UREA NITROGEN, BLOOD 12 mg/dL (7-18)
[2018-09-15 17:24] LABS: ALANINE AMINOTRANSFERASE 12 U/L (12-78); ALBUMIN 3.5 g/dL (3.4-5.0); ALKALINE PHOSPHATASE 83 U/L (46-116); ASPARTATE AMINOTRANSFERASE 14 U/L (15-37); BILIRUBIN,DIRECT 0.3 mg/dL (0.0-0.2); BILIRUBIN,TOTAL 1.2 mg/dL (0.2-1.0); TOTAL PROTEIN, SERUM 7.3 g/dL (6.4-8.2)
--- NOTE | 2018-09-15 18:03 | NUR ---
REPORT GIVEN TO ZORAIDA MANCILLA FOR SANDIE. ANTIBIOTIC STILL INFUSING.
--- NOTE | 2018-09-15 18:42 | NUR ---
URINE SPECIMEN COLLECTED AND SENT TO LAB.
[2018-09-15 19:19] LABS: APPEARANCE,URINE Slightly Cloudy (CLEAR); BILIRUBIN,URINE Negative (NEGATIVE); BLOOD, URINE Trace-intact Ery/uL (NEGATIVE); COLOR,URINE Yellow (YELLOW); KETONES,URINE Negative (NEGATIVE); LEUKOCYTE ESTERASE ,URINE Negative (NEGATIVE); NITRITE, URINE Negative (NEGATIVE); PH,URINE 5.5 (5.0-8.0); PROTEIN,URINE Negative (NEGATIVE); UGLUCOSE Negative (NEGATIVE); UROBILINOGEN,URINE 0.2 EU/dL (0.2)
--- NOTE | 2018-09-15 19:30 | NUR ---
MS RN NOTES RECEIVED PATIENT FROM ED VIA GURDYLLAN IN STABLE CONDITION WITH NO DISTRESS NOTED. PATIENT A/O X4. NO C/O PAIN OR DISCOMFORT. O2 @ 2LPM VIA NC INTACT AND PATENT. PERIPHERAL LINE INTACT AND PATENT. ENCOURAGED USE OF CALL LIGHT FOR ASSISTANCE AND VERBALIZED GOOD UNDERSTANDING. ROOM FREE OF CLUTTER AND BELONGINGS KEPT NEAR BEDSIDE. WILL CONTINUE TO MONITOR.
[2018-09-15 20:00] VITALS: BP 121/78
[2018-09-15 20:39] LABS: BACTERIA,URINE Few /HPF (None Seen); SQUAMOUS EPITHELIAL CELL,UR Few /HPF (None Seen); WBC,URINE 0-2 /HPF (0-3)
--- NOTE | 2018-09-15 21:00 | NUR ---
ADMISSION ORDERS RECEIVED FROM DR. ROJAS. ORDERS READ BACK, VERIFIED, NOTED, AND CARRIED OUT.
[2018-09-15] MEDS: CEFTRIAXONE 1 G in IV D5W 50 ML IV SCH (22:30)
[2018-09-15] MEDS ORDERED: Z GUARD REMEDY 4 OZ OINT TP PRN (23:00)
[2018-09-16] MEDS ORDERED: CEFTRIAXONE 1 G VIAL ONE (00:01)
--- NOTE | 2018-09-16 06:09 | NUR ---
MS RN NOTES PATIENT ASLEEP IN BED WITH NO DISTRESS NOTED. CALL LIGHT WITHIN REACH. ALL DUE MEDS GIVEN ORDERED WITH NO ASE NOTED. NO C/O PAIN OR DISCOMFORT. NO RESPIRATORY DISTRESS. PERIPHERAL LINE INTACT AND PATENT. BED IN LOW LOCK SETTING. BED ALARM ON AND FUNCTIONING PROPERLY. ALL BELONGINGS KEPT NEAR BEDSIDE. WILL ENDORSE TO ONCOMING SHIFT.
--- NOTE | 2018-09-16 06:11 | NUR ---
ORDERED ROCEPHIN IV GIVEN ORDERED. DR. ROJAS AWARE OF PCN ALLERGY. PHARMACY MADE AWARE. PATIENT TOLERATED WELL WITH NO SKIN RASHES, SWELLING, OR RESPIRATORY DISTRESS NOTED. WILL ENDORSE TO ONCOMING SHIFT.
[2018-09-16 06:17] LABS: BASOPHILS % (AUTO) 0.6 % (0.0-2.0); EOSINOPHILS % (AUTO) 3.1 % (0.0-6.0); HEMATOCRIT 32 % (33-45); HEMOGLOBIN 10.6 g/dL (11.5-14.8); LYMPHOCYTES # (AUTO) 1.5 /CMM (0.8-4.8); MEAN CORPUSCULAR HGB CONC 33 g/dl (31.0-36.0); MEAN CORPUSCULAR VOLUME 94 fL (82-100); MONOCYTES # (AUTO) 0.6 /CMM (0.1-1.30); MONOCYTES % (AUTO) 7.4 % (2.0-12.0); NEUTROPHILS # (AUTO) 6.2 /CMM (1.8-8.9); NEUTROPHILS % (AUTO) 71.9 % (43.0-81.0); PLATELET COUNT (AUTO) 243 /CMM (150-450); RED BLOOD CELL COUNT(AUTO) 3.41 MIL/uL (4.0-5.2); WHITE BLOOD COUNT (AUTO) 8.7 K/uL (4.3-11.0)
[2018-09-16] MEDS ORDERED: TRAMADOL HCL 50 MG TABLET PO PRN (07:30)
--- NOTE | 2018-09-16 07:30 | NUR ---
RN NOTES PATIENT A/OX4, NAD, BREATHING EVEN AND UNLABORED, ABLE TO VERBALIZE NEEDS, BLE NOTED WITH SWELLING AND REDNESS, KEPT ELEVATED. NEEDS ATTENDED, CALL LIGHT WITHIN REACH, WILL CONTINUE TO MONITOR.
[2018-09-16 08:00] VITALS: BP 110/60
[2018-09-16] MEDS: METOPROLOL SUCCINATE 50 MG TAB.SR.24H PO SCH (09:01)
[2018-09-16] MEDS: PANTOPRAZOLE 40 MG TABLET.DR PO SCH (09:01)
[2018-09-16] MEDS: FUROSEMIDE 40 MG/4 ML VIAL IV SCH (09:01)
[2018-09-16] MEDS: POTASSIUM CHLORIDE 20 MEQ TAB.PRT.SR PO SCH (09:01)
[2018-09-16] MEDS: SPIRONOLACTONE 25 MG TABLET PO SCH (09:02)
[2018-09-16] MEDS: ESCITALOPRAM OXALATE (10 MG) 10 MG TABLET PO SCH (09:02)
[2018-09-16] MEDS: Z GUARD REMEDY 4 OZ OINT TP SCH (11:04)
[2018-09-16 16:00] VITALS: BP 117/60
[2018-09-16] MEDS: RIVAROXABAN 15 MG TABLET PO SCH (17:22)
--- NOTE | 2018-09-16 18:16 | NUR ---
RN NOTES PATIENT A/OX4, BREATHING EVEN AND UNLABORED, NO SOB NOTED, ABLE TO MOVE IN BED WITH SOME ASSISTANCE, Z-GUARD APPLIED TO ZEFERINO-AREA. ASSISTED PATIENT TO COMMODE MULTIPLE TIMES FOR VOIDING. PIV ON LEFT AC PATENT AND FLUSHES WELL, DENIES PAIN OR DISCOMFORT NOTED. BLE KEPT ELEVATED, NEEDS ATTENDED AND MET, CALL LIGHT WITHIN REACH, WILL ENDORSE TO REPORTING ANALYST FOR SANDIE.
[2018-09-16 19:30] VITALS: BP 111/68
--- NOTE | 2018-09-16 19:30 | NUR ---
MS RN INITIAL NOTES Patient in bed, awake. A/O x4, on supplemental oxygen at 2L via NC, denies shortness of breath. BLE swelling, redness and warmth, denies pain. Maintained safety, will cont to monitor.
[2018-09-16 20:00] VITALS: BP 111/68
[2018-09-16] MEDS: ATORVASTATIN 10 MG TABLET PO SCH (21:16)
[2018-09-16] MEDS: SENNOSIDES 8.6 MG TABLET PO SCH (21:16)
[2018-09-16] MEDS: CEFTRIAXONE 1 G in IV D5W 50 ML IV SCH (21:58)
[2018-09-17] MEDS: PANTOPRAZOLE 40 MG TABLET.DR PO SCH (06:22)
--- NOTE | 2018-09-17 06:24 | NUR ---
MS RN CLOSING NOTES Patient in bed, awake. A/O x3, forgetful, reoriented easily. On supplemental oxygen at 2L via NC, denies shortness of breath. BLE swelling, redness and warmth, denies pain. Continued on IV antibiotic with no adverse side effect, VSS, afebrile during the shift. Breast fold with redness, for wound consult. No acute events overnight, slept well. Will endorse to oncoming RN.
--- NOTE | 2018-09-17 07:45 | NUR ---
MS RN Opening Notes 321-2 Patient awake, resting in bed. Alert and oriented x3, episodes of forgetfulness. No complaints of pain at this time. Respirations even and unlabored on 2 L oxygen via nasal cannula, no acute distress noted. Peripheral IV to the left AC 20 gauge, intact, patent and saline locked. Updated patient on current plan of care and safety measures. Safety and fall precautions in place: bed in lowest and locked position, side rails up x2, bed alarm on, call light and personal possessions within reach. Patient verbalized understanding. Will continue to monitor and intervene as needed.
[2018-09-17 08:00] VITALS: BP 126/76
[2018-09-17 08:27] VITALS: BP_SYST 126; BP_SYST 141; BP_DIAS 76; BP_DIAS 83
[2018-09-17] MEDS: SPIRONOLACTONE 25 MG TABLET PO SCH (09:00)
[2018-09-17] MEDS: ESCITALOPRAM OXALATE (10 MG) 10 MG TABLET PO SCH (09:00)
[2018-09-17] MEDS: FUROSEMIDE 40 MG/4 ML VIAL IV SCH (09:01)
[2018-09-17] MEDS: METOPROLOL SUCCINATE 50 MG TAB.SR.24H PO SCH (09:01)
[2018-09-17] MEDS: POTASSIUM CHLORIDE 20 MEQ TAB.PRT.SR PO SCH (09:01)
[2018-09-17] MEDS: Z GUARD REMEDY 4 OZ OINT TP SCH (09:02)
--- NOTE | 2018-09-17 16:00 | NUR ---
Positive MRSA reporting for MRSA nares. Initiated contact isolation protocol and placed orders per protocol. Patient transferred to room 326-1.
[2018-09-17 16:03] VITALS: BP 99/64
--- NOTE | 2018-09-17 18:00 | NUR ---
MS RN Closing Notes 326-1 Patient awake, resting in bed. Alert and oriented x3, episodes of forgetfulness. Contact isolations for MRSA nares. No complaints of pain at this time. No acute events this shift, vital signs stable. Respirations even and unlabored on 3 L oxygen via nasal cannula, no acute distress noted. Peripheral IV to the left AC 20 gauge, intact, patent and saline locked. BLE redness noted, improving with treatment. Updated patient on current plan of care and safety measures. Safety and fall precautions in place: bed in lowest and locked position, side rails up x2, bed alarm on, call light and personal possessions within reach. Patient verbalized understanding. All due medications given as ordered. Will endorse to shift supervisor melting RN for continuity of care.
[2018-09-17] MEDS: RIVAROXABAN 15 MG TABLET PO SCH (18:02)
[2018-09-17 20:00] VITALS: BP 118/69
--- NOTE | 2018-09-17 20:00 | NUR ---
MS STEFFEN NOTES PT SEEN IN BED AWAKE AND ALERT CLEANING BY PARAM BECAUSE OF BOWEL MOVEMENT. NO SIGNS OF ANY ACUTE DISTRESS NOTED AT THIS TIME. SKIN HOT AND DRY TO TOUCH . VITAL SIGNS TAKEN AND NOTICED TEMP 100.9 .NO SIGNS OF SEIZURE NOTED. WILL CONTINUE MONITORING AND WILL CALL CUSTOMER SUPPORT COORDINATOR MD . PT ON ISOLATION PRECAUTION MRSA IMPLEMENTED AND OBSERVED. PLACE CALL LIGHT AT REACH.
[2018-09-17 21:10] VITALS: BP 118/69
--- NOTE | 2018-09-17 21:26 | NUR ---
MS STEFFEN NOTES SPOKE TO DR CRYSTAL WILLS TO SENT STOOL FOR C-DIFF, NO TYLENOL AND BLOOD CULTURE AT THIS TIME. COOL MEASURE APPLIED AND WILL CONTINUE MONITORING.
[2018-09-17] MEDS: ATORVASTATIN 10 MG TABLET PO SCH (21:41)
[2018-09-17] MEDS: MUPIROCIN OINT 2% 22 GM TUBE SCH (21:41)
[2018-09-17] MEDS: SENNOSIDES 8.6 MG TABLET PO SCH (21:42)
[2018-09-17] MEDS: CEFTRIAXONE 1 G in IV D5W 50 ML IV SCH (23:25)
--- NOTE | 2018-09-18 | NUR ---
MS PUTTY GLAZER NOTES PT SLEEPING COMFORTABLY IN BED WITHOUT ANY ACUTE DISTRESS NOTED. TEMP CHECKED CAME OUT 99.00. CONTINUE MONITORING FOR ANY CHANGES.
--- NOTE | 2018-09-18 06:56 | NUR ---
[facility] JAVA J2EE TECHNICAL LEAD CLOSING NOTES PT BACK TO REST AFTER MORNING CARE DONE, NO BOWEL MOVEMENT NOTED AT THIS TIME. SLEPT WELL AFTER BOWEL MOVEMENT. BREATHING EVEN AND UNLABORED, NOT IN ANY ACUTE DISTRESS NOTED. TEMP 98.6 AFTER COLD COMPRESS APPLIED LAST NIGHT. KEPT HER WARM AND COMFORTABLE AT ALL TIMES. STILL ON ISOLATION PRECAUTION . REPOSITION FOR COMFORT. BED ALARM SET FOR SAFETY. WILL ENDORSE TO AM NURSE FOR CONTINUITY OF CARE. PLACE CALL AT REACH.
--- NOTE | 2018-09-18 07:30 | NUR ---
m/s argon tester: initial assessment received pt in bed asleep, but easily arousable. no loose bm noted at this time. call light within reach. resp even and unlabored. will continue to monitor.
[2018-09-18 07:37] LABS: B-TYPE NATRIURETIC PEPTIDE 1930 PG/ML (0-125); CALCIUM, SERUM 8.8 mg/dL (8.5-10.1); CARBON DIOXIDE 33 mmol/L (21-32); CHLORIDE 100 mmol/L (98-107); CREATININE 0.7 mg/dL (0.6-1.3); GLUCOSE 117 mg/dL (74-106); SODIUM SERUM 139 mmol/L (136-145); UREA NITROGEN, BLOOD 13 mg/dL (7-18)
[2018-09-18 08:00] VITALS: BP 120/71
--- NOTE | 2018-09-18 08:05 | NUR ---
m/s cleat layer: md visit seen and examined by dr. oliveira and ask if stool was collected. informed md that it wasn't due to was thrown away and contaminated. received verbal order to start her on doxycycline 100mg po bid to reduce c diff as stated. order read back and carried out and acknowledged.
[2018-09-18] MEDS: POTASSIUM CHLORIDE 20 MEQ TAB.PRT.SR PO SCH (08:31)
[2018-09-18] MEDS: SPIRONOLACTONE 25 MG TABLET PO SCH (08:31)
[2018-09-18] MEDS: ESCITALOPRAM OXALATE (10 MG) 10 MG TABLET PO SCH (08:32)
[2018-09-18] MEDS: DOXYCYCLINE HYCLATE (100 MG) 100 MG TABLET PO SCH ×2 (08:32→20:51)
[2018-09-18] MEDS: METOPROLOL SUCCINATE 50 MG TAB.SR.24H PO SCH (08:32)
[2018-09-18] MEDS: PANTOPRAZOLE 40 MG TABLET.DR PO SCH (08:32)
[2018-09-18] MEDS: Z GUARD REMEDY 4 OZ OINT TP SCH (08:35)
[2018-09-18] MEDS: MUPIROCIN OINT 2% 22 GM TUBE SCH ×2 (08:40→20:51)
[2018-09-18] MEDS: FUROSEMIDE 40 MG/4 ML VIAL IV SCH (09:39)
--- NOTE | 2018-09-18 12:00 | NUR ---
WOUND CARE CONSULT: PT PRESENTS WITH DRY SCABS TO TOES AND RASH TO BREASTFOLD AND ABD/GROIN FOLDS, PRESENT ON ADMISSION. RECOMMENDATIONS MADE FOR SKIN PROTECTION. DISCUSSED WITH NURSING STAFF. WILL SEE PRTraci BISWAS IN AGREEMENT WITH PLAN OF CARE.
--- NOTE | 2018-09-18 14:00 | NUR ---
m/s hydraulics teacher: notes resting comfortable in bed. no distress noted. will continue to monitor.
[2018-09-18 16:00] VITALS: BP 121/76
[2018-09-18] MEDS: CLOTRIMAZOLE 1% 15 GM TUBE TP SCH (17:00)
[2018-09-18] MEDS: RIVAROXABAN 15 MG TABLET PO SCH (17:10)
--- NOTE | 2018-09-18 17:13 | NUR ---
M/S RN ACLS: NOTES F/U MADE TO PHARMACIST RE: LOTRIMIN CREAM ORDER THIS MORNING, SPOKE TO SHERWIN.
--- NOTE | 2018-09-18 17:30 | NUR ---
m/s urban planning teacher: notes dinner served with hob elevated. no c/o pain or any discomfort. ble cellulitis improving. no distress noted. will monitor.
--- NOTE | 2018-09-18 19:00 | NUR ---
MS RN RECEIVED PT ON BED, A/O X 3, NOT IN ANY FORM OF DISTRESS, RESPIRATIONS EVEN AND UNLABORED, NO SOB NOTED, STABLE CONDITION. SAFETY MEASURES IN PLACE. WILL CONTINUE TO MONITOR.
--- NOTE | 2018-09-18 19:10 | NUR ---
m/s rn wellness: notes bedside report given to maribell (rn) for continuity of care.
[2018-09-18 20:00] VITALS: BP 108/65
[2018-09-18] MEDS: ATORVASTATIN 10 MG TABLET PO SCH (21:11)
[2018-09-18] MEDS: SENNOSIDES 8.6 MG TABLET PO SCH (21:12)
[2018-09-18] MEDS: CEFTRIAXONE 1 G in IV D5W 50 ML IV SCH (22:22)
--- NOTE | 2018-09-19 06:22 | NUR ---
RN CLOSING NOTE ASLEEP AND EASILY AWAKEN, NOT IN DISTRESS. STABLE, RESPIRATIONS EVEN AND UNLABORED. NURSING CARE RENDERED, KEPT CLEAN AND DRY AND COMFORT, NEEDS ATTENDED AND ANTICIPATED. REPOSITION EVERY 2 HOURS. GOOD SKIN CARE PROVIDED. SAFETY MEASURES IN PLACE, CALL LIGHT WITHIN REACH. WILL ENDORSE TO THE NEXT SHIFT.
--- NOTE | 2018-09-19 07:24 | NUR ---
MS RN OPENING NOTES RECEIVED PT AWAKE IN BED IN NO ACUTE SIGNS OF DISTRESS. A/O X3. ABLE TO MAKE NEEDS KNOWN, NO C/O PAIN OR DISCOMFORTS AT THIS TIME. CONTACT PRECAUTIONS FOR MRSA OF NARES MAINTAINED. ON ROOM AIR, BREATHING EVEN AND UNLABORED. IV ACCESS ON LEFT AC INTACT AND PATENT. SAFETY PRECAUTIONS IN PLACE. BED IN LOW LOCKED POSITION WITH SR UP X2. CALL LIGHT WITHIN REACH. WILL MONITOR ACCORDINGLY
[2018-09-19] MEDS: PANTOPRAZOLE 40 MG TABLET.DR PO SCH (07:30)
[2018-09-19 08:00] VITALS: BP 114/59
[2018-09-19] MEDS: FUROSEMIDE 40 MG/4 ML VIAL IV SCH (08:58)
[2018-09-19] MEDS: METOPROLOL SUCCINATE 50 MG TAB.SR.24H PO SCH (08:59)
[2018-09-19] MEDS: POTASSIUM CHLORIDE 20 MEQ TAB.PRT.SR PO SCH (08:59)
[2018-09-19] MEDS: SPIRONOLACTONE 25 MG TABLET PO SCH (08:59)
[2018-09-19] MEDS: DOXYCYCLINE HYCLATE (100 MG) 100 MG TABLET PO SCH ×2 (08:59→20:43)
[2018-09-19] MEDS: ESCITALOPRAM OXALATE (10 MG) 10 MG TABLET PO SCH (08:59)
[2018-09-19] MEDS: MUPIROCIN OINT 2% 22 GM TUBE SCH (09:00)
[2018-09-19] MEDS: Z GUARD REMEDY 4 OZ OINT TP SCH (09:08)
[2018-09-19] MEDS: CLOTRIMAZOLE 1% 15 GM TUBE TP SCH ×2 (11:53→16:51)
[2018-09-19 16:00] VITALS: BP 104/76
[2018-09-19] MEDS: RIVAROXABAN 15 MG TABLET PO SCH (16:50)
--- NOTE | 2018-09-19 19:05 | NUR ---
MS RN CLOSING NOTES PT IN BED AWAKE AND RESTING AT MODERATE HIGH BACKREST POSITION. A/O X3. ABLE TO MAKE NEEDS KNOWN WITH PERIODS OF FORGETFULNESS NOTED. REORIENTED AND ALL NEEDS AND CARE ATTENDED WELL. ON ROOM AIR, TOLERATING WELL WITH NO ACUTE DISTRESS NOTED THROUGHOUT THE DAY. IV ACCESS ON LEFT AC INTACT AND PATENT, FLUSHES WELL. SAFETY MEASURES IN PLACE. BED IN LOW LOCKED POSITION WITH SR UP X2. CALL LIGHT WITHIN REACH. WILL ENDORSED TO TILE DESIGNER NURSE FOR SANDIE.
--- NOTE | 2018-09-19 19:34 | NUR ---
MS RN PT SITTING IN THE BED, A/O X 3, NOT IN ANY FORM OF DISTRESS, RESPIRATIONS EVEN AND UNLABORED, NO SOB NOTED, STABLE CONDITION. SAFETY MEASURES IN PLACE. WILL CONTINUE TO MONITOR.
[2018-09-19 20:00] VITALS: BP 112/62
[2018-09-19] MEDS: ATORVASTATIN 10 MG TABLET PO SCH (21:12)
[2018-09-19] MEDS: SENNOSIDES 8.6 MG TABLET PO SCH (21:12)
[2018-09-19] MEDS: CEFTRIAXONE 1 G in IV D5W 50 ML IV SCH (22:02)
--- NOTE | 2018-09-20 06:35 | NUR ---
RN CLOSING NOTE ASLEEP AND EASILY AWAKEN, RESPIRATIONS EVEN AND UNLABORED. KEPT CLEAN AND DRY AND COMFORT, NEEDS ATTENDED AND ANTICIPATED. NURSING CARE RENDERED. SAFETY MEASURES IN PLACE, CALL LIGHT WITHIN REACH. WILL ENDORSE TO THE NEXT SHIFT.
--- NOTE | 2018-09-20 07:45 | NUR ---
RN OPENING NOTE PT WAS RECEIVED IN BED AT LOWEST AND LOCKED POSITION WITH SIDE RAILS UP X2, A/O X3 WITH PERIODS OF FORGETFULNESS, BREATHING EVEN AND UNLABORED ON RA, NO S/S OF PAIN OR DISTRESS NOTED, IV IS PATENT AND INTACT, ON ISOLATION PRECAUTIONS, SAFETY PRECAUTIONS IN PLACE, CALL LIGHT WITHIN REACH, WILL MONITOR ACCORDINGLY
[2018-09-20] MEDS: DOXYCYCLINE HYCLATE (100 MG) 100 MG TABLET PO SCH (08:46)
[2018-09-20] MEDS: ESCITALOPRAM OXALATE (10 MG) 10 MG TABLET PO SCH (08:46)
[2018-09-20] MEDS: PANTOPRAZOLE 40 MG TABLET.DR PO SCH (08:47)
[2018-09-20] MEDS: POTASSIUM CHLORIDE 20 MEQ TAB.PRT.SR PO SCH (08:47)
[2018-09-20] MEDS: METOPROLOL SUCCINATE 50 MG TAB.SR.24H PO SCH (08:47)
[2018-09-20] MEDS: SPIRONOLACTONE 25 MG TABLET PO SCH (08:48)
[2018-09-20] MEDS: FUROSEMIDE 40 MG/4 ML VIAL IV SCH (08:48)
[2018-09-20 08:57] VITALS: BP 130/86
[2018-09-20] MEDS: Z GUARD REMEDY 4 OZ OINT TP SCH (08:59)
[2018-09-20] MEDS: CLOTRIMAZOLE 1% 15 GM TUBE TP SCH (08:59)
--- NOTE | 2018-09-20 14:51 | NUR ---
RN NOTE REPORT WAS GIVEN TO EPI AT [facility] AT THIS TIME
--- NOTE | 2018-09-20 16:00 | NUR ---
DISCHARGE NOTE PT WAS D/C IN MEDICALLY STABLE CONDITION TO [facility] AT THIS TIME. DISCHARGE PAPERWORK, EXITCARE, AND BELONGINGS LIST WERE DISCUSSED, SIGNED, AND HANDED TO THE PATIENT AND EMT CREW. ALL BELONGINGS WERE GIVEN TO THE EMT CREW FOR TRANSPORT. ID BAND WAS REMOVED BUT PT IS LEAVING WITH [facility] IV #24 FOR CONTINUATION OF ABX AT THE FACILITY FOR 2-3 MORE DAYS PER MD ORDER. SKIN WOUNDS WERE PHOTOGRAPHED AND DOCUMENTED. ALL NEEDS WERE ATTENDED TO DURING HER STAY. PT LEFT FACILITY WITH EMT CREW AT THIS TIME. ETA 15-30 MINUTE Addendum: 09/20/18 at 1621 by WILSON ROMAN RN REPORT GIVEN TO EPI AT THE FACILITY
[2018-09-20 16:05] VITALS: BP 117/67
== END 2018-09-20 16:10 | DRG 602 ==
LOC: ER 16:51 → MED 18:17
PROVIDERS: ADMIT Internal Medicine; ATTEND Internal Medicine
DX: L03.116 Cellulitis of left lower limb (principal); I50.33 Acute on chronic diastolic (congestive) heart failure; I11.0 Hypertensive heart disease with heart failure; L03.115 Cellulitis of right lower limb; Z86.73 Personal history of transient ischemic attack (TIA), and cerebral infarction without residual deficits; K21.9 Gastro-esophageal reflux disease without esophagitis; I27.20 Pulmonary hypertension, unspecified; G30.9 Alzheimer's disease, unspecified; F02.80 Dementia in other diseases classified elsewhere, unspecified severity, without behavioral disturbance, psychotic disturbance, mood disturbance, and anxiety; D63.8 Anemia in other chronic diseases classified elsewhere; I87.2 Venous insufficiency (chronic) (peripheral); I25.10 Atherosclerotic heart disease of native coronary artery without angina pectoris; I27.21 Secondary pulmonary arterial hypertension; R09.02 Hypoxemia; I25.2 Old myocardial infarction; I48.2 Chronic atrial fibrillation; Z79.899 Other long term (current) drug therapy; Z87.891 Personal history of nicotine dependence; Z79.01 Long term (current) use of anticoagulants
CPT/HCPCS: 36415; 71045-TC; 80048-TC; 80076-TC; 81000-TC; 83605-TC; 83880; 84484-TC; 85025-TC; 85652-TC; 85730-TC; 87040-TC; 87081-TC; 87086-TC; 93307-TC; G0378; J0696; J1940; J1956; J3370; J7030; J7060

== ENCOUNTER 2019-04-06 12:50 | Inpatient (IN) | payer MEDICARE, MEDICAID ==
[~2019-04-06] VITALS: Ht 165.1 cm; Wt 98.0 kg
[~2019-04-06 12:50] MED LIST changes: -CYAN10006 IM; -FURO-144 PO
[2019-04-06] MEDS ORDERED: TYL2T PO (13:21)
[2019-04-06 13:26] LABS: BASOPHILS % (AUTO) 0.5 % (0.0-2.0); EOSINOPHILS % (AUTO) 7.2 % (0.0-6.0); HEMATOCRIT 38 % (33-45); HEMOGLOBIN 12.8 g/dL (11.5-14.8); LYMPHOCYTES # (AUTO) 1.8 /CMM (0.8-4.8); LYMPHOCYTES % (AUTO) 23.6 % (20.0-44.0); MEAN CORPUSCULAR HGB CONC 34 g/dl (31.0-36.0); MEAN CORPUSCULAR VOLUME 95 fL (82-100); MONOCYTES # (AUTO) 0.7 /CMM (0.1-1.30); MONOCYTES % (AUTO) 9.1 % (2.0-12.0); NEUTROPHILS # (AUTO) 4.5 /CMM (1.8-8.9); NEUTROPHILS % (AUTO) 59.6 % (43.0-81.0); PLATELET COUNT (AUTO) 240 /CMM (150-450); RED BLOOD CELL COUNT(AUTO) 3.97 MIL/uL (4.0-5.2); WHITE BLOOD COUNT (AUTO) 7.6 K/uL (4.3-11.0)
[2019-04-06] MEDS ORDERED: AZTREONAM 2 G in IV NS 0.9% 100 ML IV ONE (13:30)
[2019-04-06] MEDS ORDERED: VANCOMYCIN 1 GM in IV D5W 250 ML IV ONE (13:30)
--- NOTE | 2019-04-06 13:30 | NUR ---
patient BIBA [facility] unit 21 For cellulitis/weeping Edema "Have had this on/off for years". On 02 @ 2lpm via NC. Breathing evenly and unlabored. Connected to the monitor and pulse ox. Kept comfortable, will continue to monitor accordingly.
--- NOTE | 2019-04-06 13:34 | NUR ---
JING ROJAS [phone]
[2019-04-06 13:38] LABS: CALCIUM, SERUM 9.7 mg/dL (8.5-10.1); CARBON DIOXIDE 31 mmol/L (21-32); CHLORIDE 101 mmol/L (98-107); CREATININE 0.8 mg/dL (0.6-1.3); GLUCOSE 76 mg/dL (74-106); POTASSIUM 4.4 mmol/L (3.5-5.1); SODIUM SERUM 139 mmol/L (136-145); UREA NITROGEN, BLOOD 15 mg/dL (7-18)
[2019-04-06 13:54] LABS: ALANINE AMINOTRANSFERASE 15 U/L (12-78); ALBUMIN 3.9 g/dL (3.4-5.0); ALKALINE PHOSPHATASE 75 U/L (46-116); ASPARTATE AMINOTRANSFERASE 15 U/L (15-37); BILIRUBIN,DIRECT 0.3 mg/dL (0.0-0.2); BILIRUBIN,TOTAL 1.6 mg/dL (0.2-1.0)
--- NOTE | 2019-04-06 13:55 | NUR ---
JING ROJAS [phone]
[2019-04-06 14:12] LABS: B-TYPE NATRIURETIC PEPTIDE 971 PG/ML (0-125)
--- NOTE | 2019-04-06 15:51 | NUR ---
wheeled patient via gurney accompanied by RN and EMT in no apparent distress noted. Guicho RN at bedside to assume care.
--- NOTE | 2019-04-06 16:00 | NUR ---
MS RN RECEIVED A NEW ADMISSION FROM ER, 88 YEAR OLD FEMALE, CAME IN W/ DIAGNOSIS OF BILATERAL LOWER LEG CELLULITIS,AWAKE,ALERT,ORIENTED X2, WILL MONITOR PATIENT.
--- NOTE | 2019-04-06 16:45 | NUR ---
MS ZORAIDA ROJAS OFFICE,LEFT MESSAGE FOR ORDERS.
--- NOTE | 2019-04-06 18:01 | NUR ---
MS RN STILL WAITING FOR DR. ROJAS TO CALL BACK FOR ORDERS.
[2019-04-06 18:21] VITALS: BP 122/77
[2019-04-06] MEDS ORDERED: FEE PK DOSING 1 MIN EA MC ONE (19:14)
[2019-04-06] MEDS ORDERED: VANCOMYCIN 500 MG in IV D5W 100ml IV ONE (19:30)
[2019-04-06 20:07] VITALS: BP 124/76
--- NOTE | 2019-04-06 20:09 | NUR ---
MS RN NOTES RECEIVED PATIENT AWAKE IN BED WITH NO DISTRESS NOTED. CALL LIGHT WITHIN REACH. WITH ORDERS TO CONTINUE ALL MEDS FROM SNF, MED RECON LIST FAXED TO PHARMACY. PERIPHERAL LINE INTACT AND PATENT. NO C/O PAIN OR DISCOMFORT. ENCOURAGED USE OF CALL LIGHT FOR ASSISTANCE AND VERBALIZED GOOD UNDERSTANDING. BED IN LOW LOCK SETTING. ROOM FREE OF CLUTTER AND BELONGINGS KEPT NEAR BEDSIDE. WILL CONTINUE TO MONITOR.
[2019-04-06] MEDS: CEFTRIAXONE 1 G in IV D5W 50 ML IV SCH (21:30)
[2019-04-06] MEDS: ATORVASTATIN 10 MG TABLET PO SCH (21:31)
[2019-04-06] MEDS: SENNOSIDES 8.6 MG TABLET PO SCH (21:31)
[2019-04-07] MEDS: VANCOMYCIN HCL 0.75 GM in IV D5W 250 ML IV SCH ×3 (05:31→17:26)
[2019-04-07] MEDS ORDERED: VANCOMYCIN 1.25 GM in IV D5W 500 ML IV SCH ×2 (06:00→15:00)
[2019-04-07 06:14] LABS: BASOPHILS % (AUTO) 0.6 % (0.0-2.0); EOSINOPHILS % (AUTO) 7.5 % (0.0-6.0); HEMATOCRIT 33 % (33-45); HEMOGLOBIN 11.3 g/dL (11.5-14.8); LYMPHOCYTES # (AUTO) 1.6 /CMM (0.8-4.8); LYMPHOCYTES % (AUTO) 23.1 % (20.0-44.0); MEAN CORPUSCULAR HGB CONC 35 g/dl (31.0-36.0); MEAN CORPUSCULAR VOLUME 94 fL (82-100); MONOCYTES # (AUTO) 0.6 /CMM (0.1-1.30); MONOCYTES % (AUTO) 8.8 % (2.0-12.0); NEUTROPHILS # (AUTO) 4.1 /CMM (1.8-8.9); PLATELET COUNT (AUTO) 213 /CMM (150-450); RED BLOOD CELL COUNT(AUTO) 3.49 MIL/uL (4.0-5.2); WHITE BLOOD COUNT (AUTO) 6.9 K/uL (4.3-11.0)
[2019-04-07 06:29] LABS: ALBUMIN 3.2 g/dL (3.4-5.0); BILIRUBIN,TOTAL 1.2 mg/dL (0.2-1.0); CALCIUM, SERUM 8.9 mg/dL (8.5-10.1); CREATININE 0.8 mg/dL (0.6-1.3); MAGNESIUM 1.9 mg/dL (1.8-2.4); PHOSPHORUS 3.8 mg/dL (2.5-4.9); POTASSIUM 4.6 mmol/L (3.5-5.1); TOTAL PROTEIN, SERUM 6.7 g/dL (6.4-8.2)
--- NOTE | 2019-04-07 06:40 | NUR ---
MS RN NOTES PATIENT ASLEEP IN BED WITH NO DISTRESS NOTED. CALL LIGHT WITHIN REACH. ALL DUE MEDS GIVEN ORDERED WITH NO ASE NOTED. NO C/O PAIN OR DISCOMFORT. PERIPHERAL LINE INTACT AND PATENT. BED IN LOW LOCK SETTING. ROOM FREE OF CLUTTER AND BELONGINGS KEPT NEAR BEDSIDE. WILL ENDORSE TO ONCOMING SHIFT.
--- NOTE | 2019-04-07 07:39 | NUR ---
MS RN OPENING NOTE PATIENT IN BED RESTING COMFORTABLY. PATIENT IN NO ACUTE DISTRESS. NO SOB NOTED. PATIENT BREATHING IS EVEN AND UNLABORED. PATIENT BREATHING ON OXYGEN NC 2L. PATIENT SAFETY PRECAUTIONS IN PLACE. PATIENT IN BED LOCKED AND IN LOWEST POSITION. CALL LIGHT WITHIN REACH. WILL CONTINUE TO MONITOR.
[2019-04-07 08:00] VITALS: BP 120/67
[2019-04-07] MEDS: SPIRONOLACTONE 25 MG TABLET PO SCH (08:51)
[2019-04-07] MEDS: METOPROLOL SUCCINATE 50 MG TAB.SR.24H PO SCH (08:52)
[2019-04-07] MEDS: LACTOBACILLUS RHAMNOSUS GG 1 EACH CAP.SPRINK PO SCH ×2 (09:08→17:19)
[2019-04-07] MEDS: NYSTATIN OINT 100000 UNIT/G 15 GM TUBE TP SCH ×2 (14:14→17:20)
[2019-04-07 16:00] VITALS: BP 105/70
[2019-04-07] MEDS: RIVAROXABAN 10 MG TABLET PO SCH (17:19)
--- NOTE | 2019-04-07 18:32 | NUR ---
MS RN CLOSING NOTE PATIENT IN BED RESTING COMFORTABLY. PATIENT BREATHING ON OXYGEN NC AT 2L. PATIENT BREATHING IS EVEN AND UNLABORED. PATIENT SATURATING >95% SPO2. PATIENT IN NO ACUTE DISTRESS. NO SOB NOTED. PATIENT KEPT CLEAN, DRY, REPOSITIONED, AND EXTREMITIES OFFLOADED ON PILLOWS. ALL NURSING NEEDS MET. PATIENT SAFETY PRECAUTIONS IN PLACE. PATIENT BED IS LOCKED AND IN LOWEST POSITION. CALL LIGHT WITHIN REACH. WILL ENDORSE CARE TO PM SHIFT FOR SANDIE.
--- NOTE | 2019-04-07 19:05 | NUR ---
CHANGE OF SHIFT REPORT Patient in bed, awake A/O x3. On 2L oxygen via NC tolerating well, denies SOB. BLE swelling and warmth, patient here for BLE cellulitis, denies pain. Fall precautions maintained. Instructed to use call light for assistance, verbalized understanding.
[2019-04-07 20:00] VITALS: BP 104/70
[2019-04-07] MEDS: CEFTRIAXONE 1 G in IV D5W 50 ML IV SCH (20:18)
[2019-04-07 20:26] VITALS: BP 104/70
[2019-04-07] MEDS: ATORVASTATIN 10 MG TABLET PO SCH (21:11)
[2019-04-07] MEDS: SENNOSIDES 8.6 MG TABLET PO SCH (21:11)
[2019-04-07] MEDS: ACETAMINOPHEN 325 MG TABLET PO PRN (21:15)
[2019-04-07] MEDS ORDERED: Z GUARD REMEDY 2 OZ OINT TP PRN (22:30)
--- NOTE | 2019-04-08 06:19 | NUR ---
END OF SHIFT REPORT Patient in bed, on low flow oxygen at 2L via NC denies shortness of breath. BLE warmth, edema improving. Leg pain managed with PRN Tylenol with relief. On IV abx as scheduled. Blood cx pending result. Turning schedule followed, offload heels at all times. Fall/skin precautions maintained.
[2019-04-08 06:42] LABS: CALCIUM, SERUM 8.6 mg/dL (8.5-10.1); CREATININE 0.7 mg/dL (0.6-1.3); POTASSIUM 4.2 mmol/L (3.5-5.1)
--- NOTE | 2019-04-08 07:07 | NUR ---
VANCOMYCIN DOSE Vancomycin trough pending result. Endorsed to ZORAIDA Butler
--- NOTE | 2019-04-08 07:38 | NUR ---
RN OPENING NOTE PT WAS RECEIVED IN BED AT LOWEST AND LOCKED POSITION WITH SIDE RAILS UP X2, A/O X3 FORGETFUL BREATHING EVEN AND UNLABORED ON 2L VIA NC, NO S.S OF ANY DISTRESS OR PAIN AT THIS TIME, IV IS PATENT AND INTACT, VANCO TROUGH RESULTS JUST CAMEBACK AND WERE NOTED TO BE 11 SO I WILL ADMINISTER VANCO DOSE ORDERED, SAFETY PRECAUTIONS IN PLACE, CALL LIGHT WITHIN REACH, WILL MONITOR PT ACCORDINGLY
[2019-04-08] MEDS: VANCOMYCIN HCL 0.75 GM in IV D5W 250 ML IV SCH ×2 (07:42→17:00)
[2019-04-08 08:00] VITALS: BP 109/53
[2019-04-08] MEDS: SPIRONOLACTONE 25 MG TABLET PO SCH (08:10)
[2019-04-08] MEDS: METOPROLOL SUCCINATE 50 MG TAB.SR.24H PO SCH (08:10)
[2019-04-08] MEDS: LACTOBACILLUS RHAMNOSUS GG 1 EACH CAP.SPRINK PO SCH ×2 (08:10→16:14)
[2019-04-08] MEDS: NYSTATIN OINT 100000 UNIT/G 15 GM TUBE TP SCH ×3 (08:11→16:16)
[2019-04-08 16:13] VITALS: BP 109/79
[2019-04-08] MEDS: RIVAROXABAN 10 MG TABLET PO SCH (16:15)
--- NOTE | 2019-04-08 18:35 | NUR ---
RN CLOSING NOTE PT IN BED AT LOWEST AND LOCKED POSITION WITH SIDE RAILS UP, A/O X3 FORGETFUL BREATHING EVEN AND UNLABORED WITH NO DISTRESS OR PAIN AT THIS TIME, IV IS PATENT AND INTACT, SAFETY PRECAUTIONS IN PLACE, CALL LIGHT WITHIN REACH, ALL NEEDS ATTENDED TO. WILL ENDORSE TO NIGHT RN FOR SANDIE
--- NOTE | 2019-04-08 19:15 | NUR ---
MS RN OPENING NOTES Patient received in bed, head of bed elevated, alert, oriented x 3. Breathing even and unlabored. Not in any distress. On supplemental O2 at 2LPM via nasal cannula. IV site intact and patent. No complaints at this time. Safety measures in place; call light within reach, bed in low, locked position. Will continue to monitor accordingly
[2019-04-08] MEDS: CEFTRIAXONE 1 G in IV D5W 50 ML IV SCH (19:36)
[2019-04-08 20:00] VITALS: BP 99/51
[2019-04-08] MEDS: ATORVASTATIN 10 MG TABLET PO SCH (21:27)
[2019-04-08] MEDS: SENNOSIDES 8.6 MG TABLET PO SCH (21:27)
[2019-04-08] MEDS: ACETAMINOPHEN 325 MG TABLET PO PRN (22:33)
--- NOTE | 2019-04-09 00:10 | NUR ---
RN NOTES Patient sleeping in bed, easy to arouse. All needs attended. Safety measures in place. Report given to RN Day for continuity of care.
--- NOTE | 2019-04-09 00:15 | NUR ---
MS RN NOTES RECEIVED REPORT FROM NEENA,PATIENT SOUND ASLEEP.SALINE LOCK LEFT AC INTACT AND PATENT.BILATERAL LOWER EXTREMITIES APPEARS RED,ELEVATED ON PILLOWS.
[2019-04-09] MEDS: VANCOMYCIN HCL 0.75 GM in IV D5W 250 ML IV SCH ×2 (05:27→17:11)
--- NOTE | 2019-04-09 06:37 | NUR ---
MS RN NOTES NO SIGNIFICANT CHANGE IN STATUS.FAIRLY RESTED,IV ABX TOLERATED WELL.IN NO ACUTE DISTRESS.WILL ENDORSE TO DAY NURSE FOR SANDIE.
--- NOTE | 2019-04-09 07:13 | NUR ---
RN OPENING NOTE PT WAS RECEIVED IN BED AT LOWEST AND LOCKED POSITION WITH SIDE RAILS UP X2, A/O X3 FORGETFUL BREATHING EVEN AND UNLABORED ON 2L VIA NC, NO S/S OF ANY DISTRESS OR PAIN AT THIS TIME, IV IS PATENT AND INTACT, SAFETY PRECAUTIONS IN PLACE, CALL LIGHT WITHIN REACH, WILL MONITOR PT ACCORDINGLY
[2019-04-09 08:00] VITALS: BP 117/68
[2019-04-09 08:10] LABS: CALCIUM, SERUM 9.1 mg/dL (8.5-10.1); CREATININE 0.7 mg/dL (0.6-1.3); POTASSIUM 4.4 mmol/L (3.5-5.1)
[2019-04-09] MEDS: LACTOBACILLUS RHAMNOSUS GG 1 EACH CAP.SPRINK PO SCH ×2 (08:24→16:32)
[2019-04-09] MEDS: METOPROLOL SUCCINATE 50 MG TAB.SR.24H PO SCH (08:25)
[2019-04-09] MEDS: SPIRONOLACTONE 25 MG TABLET PO SCH (08:25)
[2019-04-09] MEDS: NYSTATIN OINT 100000 UNIT/G 15 GM TUBE TP SCH ×3 (08:26→16:34)
[2019-04-09] MEDS ORDERED: HYDROCORTISONE 0.5% CREAM 28.35 GM TUBE TP PRN (09:00)
--- NOTE | 2019-04-09 14:12 | NUR ---
RN NOTE PHOTOS OF SKIN WERE TAKEN AT THIS TIME, BUT PT REFUSED FOR PHOTO OF GROIN AREA TO BE TAKEN BUT IT WAS NOTED TO BE DRY AND INTACT WITH NO REDNESS WHEN SHE WAS CLEANED.
[2019-04-09 16:00] VITALS: BP 110/80
[2019-04-09] MEDS: RIVAROXABAN 10 MG TABLET PO SCH (16:35)
--- NOTE | 2019-04-09 18:52 | NUR ---
RN NOTE INFORMED BY COMPUTATORZORAIDA KLINE THAT PT D/C WILL BE HELD, AND THAT SHE WILL CONTINUE WITH HOSPITALIZATION
--- NOTE | 2019-04-09 18:53 | NUR ---
RN CLOSING NOTE PT IN BED AT LOWEST AND LOCKED POSITION WITH SIDE RAILS UP X2, A/O X3 FORGETFUL BREATHING EVEN AND UNLABORED ON 2L VIA NC, NO S/S OF ANY DISTRESS OR PAIN AT THIS TIME, IV IS PATENT AND INTACT, D/C HELD PER PULLMAN CONDUCTOR, SAFETY PRECAUTIONS IN PLACE, CALL LIGHT WITHIN REACH, ALL NEEDS ATTENDED, WILL ENDORSE TO NIGHT RN FOR SANDIE.
--- NOTE | 2019-04-09 19:20 | NUR ---
MS/RN NOTES RECEIVED PT. SITTING UP IN BED. PT. IS AWAKE, ALERT AND ORIENTED X3, FORGETFUL. BREATHING EVEN AND UNLABORED ON 2LPM O2 VIA NC. NO SOB, RESPIRATORY DISTRESS OR COMPLAINTS OF PAIN NOTED AT THIS TIME. PT. WITH LEFT AC 22 GAUGE IV SALINE LOCK PRESENT, PATENT AND INTACT. BED LOCKED AND IN LOWEST POSITION, SIDE RAILS UP X3, BED ALARM ON, CALL LIGHT WITHIN REACH, WILL CONTINUE TO MONITOR.
[2019-04-09 20:52] VITALS: BP 116/69
[2019-04-09] MEDS: SENNOSIDES 8.6 MG TABLET PO SCH (21:26)
[2019-04-09] MEDS: ATORVASTATIN 10 MG TABLET PO SCH (21:26)
[2019-04-09] MEDS: CEFTRIAXONE 1 G in IV D5W 50 ML IV SCH (21:26)
[2019-04-10] MEDS: VANCOMYCIN HCL 0.75 GM in IV D5W 250 ML IV SCH ×2 (05:39→17:12)
[2019-04-10 06:54] LABS: CALCIUM, SERUM 9.2 mg/dL (8.5-10.1); CREATININE 0.7 mg/dL (0.6-1.3); POTASSIUM 4.5 mmol/L (3.5-5.1)
--- NOTE | 2019-04-10 07:43 | NUR ---
MS/RN NOTES PT. IS LYING IN BED RESTING. BREATHING EVEN AND UNLABORED ON 2LPM O2 VIA NC. NO SOB, RESPIRATORY DISTRESS OR COMPLAINTS OF PAIN NOTED AT THIS TIME AND THROUGHOUT SHIFT. PT. WITH LEFT AC 22 GAUGE IV SALINE LOCK PRESENT, PATENT AND INTACT. ALL PT. NEEDS MET. BED LOCKED AND IN LOWEST POSITION, SIDE RAILS UP X3, BED ALARM ON, CALL LIGHT WITHIN REACH, WILL ENDORSE TO DAYSHIFT NURSE FOR CONTINUITY OF CARE.
--- NOTE | 2019-04-10 07:47 | NUR ---
MS RN OPENING NOTES PATIENT IN BED RESTING COMFORTABLY. PATIENT IN NO ACUTE DISTRESS. NO SOB NOTED. PATIENT BREATHING IS EVEN AND UNLABORED. PATIENT BREATHING ON OXYGEN 2L NC. PATIENT VERBALIZES NEEDS, NEEDS AND CONCERNS ADDRESSED. SAFETY PRECAUTIONS IN PLACE. PATIENT BED IS LOCKED AND IN LOWEST POSITION. CALL LIGHT WITHIN REACH. WILL CONTINUE TO MONITOR.
[2019-04-10 08:22] VITALS: BP 120/58
[2019-04-10 09:00] VITALS: BP 126/63
[2019-04-10] MEDS: SPIRONOLACTONE 25 MG TABLET PO SCH (09:02)
[2019-04-10] MEDS: METOPROLOL SUCCINATE 50 MG TAB.SR.24H PO SCH (09:04)
[2019-04-10] MEDS: NYSTATIN OINT 100000 UNIT/G 15 GM TUBE TP SCH ×3 (09:04→16:52)
[2019-04-10] MEDS: LACTOBACILLUS RHAMNOSUS GG 1 EACH CAP.SPRINK PO SCH ×2 (09:04→16:52)
[2019-04-10 16:10] VITALS: BP 104/62
[2019-04-10] MEDS: RIVAROXABAN 10 MG TABLET PO SCH (16:51)
--- NOTE | 2019-04-10 18:32 | NUR ---
MS RN CLOSING NOTE PATIENT IN BED RESTING COMFORTABLY. PATIENT IN NO ACUTE DISTRESS. NO SOB NOTED. PATIENT BREATHING ON OXYGEN NC AT 2L. PATIENT BREATHING IS EVEN AND UNLABORED. PATIENT NEEDS AND CONCERNS ADDRESSED THROUGHOUT SHIFT. ALL NURSING NEEDS MET. PATIENT IN NO PAIN AT THIS TIME. NO FACIAL GRIMACING NOTED. PATIENT KEPT CLEAN, DRY, AND REPOSITIONED Q2H THROUGHOUT SHIFT. PATIENT EXTREMITIES OFFLOADED ON PILLOWS. WOUND CARE PROVIDED ORDERED. SAFETY PRECAUTIONS IN PLACE. PATIENT BED IS LOCKED AND IN LOWEST POSITION. CALL LIGHT WITHIN REACH. WILL ENDORSE CARE TO PM SHIFT FOR SANDIE.
--- NOTE | 2019-04-10 19:30 | NUR ---
MS RN NOTES RECEIVED RESTING COMFORTABLY ON BED, ON RIGHT SIDE POSITION,BREATHING NORMAL ,NOT IN ANY FORM OF DISTRESS.SALINE LOCK LEFT AC INTACT AND PATENT.NOTED REDNESS ON BILATERAL LOWER EXTREMITIES,NON PITTING EDEMA NOTED ELEVATED ON PILLOWS.NO COMPLAINTS AT THE MOMENT.CALL LIGHT IN REACH,NEEDS ANTICIPATED
[2019-04-10] MEDS: CEFTRIAXONE 1 G in IV D5W 50 ML IV SCH (19:57)
[2019-04-10 20:00] VITALS: BP 133/74
[2019-04-10] MEDS: ATORVASTATIN 10 MG TABLET PO SCH (21:46)
[2019-04-10] MEDS: SENNOSIDES 8.6 MG TABLET PO SCH (21:46)
[2019-04-11] MEDS: VANCOMYCIN HCL 0.75 GM in IV D5W 250 ML IV SCH (06:01)
[2019-04-11 06:32] LABS: CALCIUM, SERUM 9.3 mg/dL (8.5-10.1); CREATININE 0.7 mg/dL (0.6-1.3); POTASSIUM 4.5 mmol/L (3.5-5.1)
--- NOTE | 2019-04-11 06:44 | NUR ---
MS RN NOTES NO SIGNIFICANT CHANGE IN STATUS,SLEPT WELL AT NIGHT,REPOSITION PER PROTOCOL.POSSIBLE D/C TO [facility].AWAITING BLOOD CULTURE RESULT.IN NO ACUTE DISTRESS.WILL ENDORSE TO DAY NURSE FOR SANDIE.
--- NOTE | 2019-04-11 07:48 | NUR ---
MS RN NOTES RECEIVED PATIENT IN BED, ASLEEP, AROUSABLE. HOB ELEVATED. NO SOB OBSERVED. DENIES ANY C/O PAIN NOR DISCOMFORT AT THIS TIME. LAC #22 HL INTACT AND PATENT. BED IN LOWEST POSITION, LOCKED. BED ALARM ON. CALL LIGHT WITHIN REACH.
[2019-04-11 08:00] VITALS: BP 109/66
[2019-04-11] MEDS: SPIRONOLACTONE 25 MG TABLET PO SCH (08:37)
[2019-04-11] MEDS: NYSTATIN OINT 100000 UNIT/G 15 GM TUBE TP SCH ×3 (08:38→17:38)
[2019-04-11] MEDS: LACTOBACILLUS RHAMNOSUS GG 1 EACH CAP.SPRINK PO SCH ×2 (08:38→17:37)
[2019-04-11] MEDS: METOPROLOL SUCCINATE 50 MG TAB.SR.24H PO SCH (08:39)
--- NOTE | 2019-04-11 08:40 | NUR ---
MS RN NOTES HELD METOPROLOL B/P 109/66 HR: 75
[2019-04-11 16:00] VITALS: BP 115/59
[2019-04-11] MEDS ORDERED: DOXYCYCLINE HYCLATE (100 MG) 100 MG TABLET PO SCH (17:00)
[2019-04-11] MEDS ORDERED: LEVOFLOXACIN (500MG) 500 MG TABLET PO SCH (17:00)
[2019-04-11] MEDS: RIVAROXABAN 10 MG TABLET PO SCH (17:38)
--- NOTE | 2019-04-11 19:20 | NUR ---
MS RN CLOSING NOTES PATIENT ASLEEP IN BED, AROUSABLE. DENIES ANY C/O PAIN NOR DISCOMFORT AT THIS TIME. HOB ELEVATED. NO S/S OF RESPIRATORY DISTRESS. ON 02 @ 2L/MIN VIA NC ALLISON WELL. PATIENT FOR DISCHARGE TO RETURN BACK TO [facility]. DISCHARGE INSTRUCTIONS AND PACKET GIVEN TO PATIENT. IV ACCESS CATHETER REMOVED WITH CATHETER TIP IN INTACT WITH PRESSURE DRESSING IN PLACE. CALLED [facility] AND MADE AWARE OF PATIENT'S RETURN. ALL BELONGINGS ACCOUNTED FOR AND FORM SIGNED. BLE EXTREMITIES ELEVATED WITH PILLOWS AT ALL TIMES. IN NO APPARENT DISTRESS. BED IN LOWEST POSITION, LOCKED. BED ALARM ON. CALL LIGHT WITHIN REACH. IN NO APPARENT DISTRESS.TRANSPORTATION WILL ARRIVE BETWEEN [phone]. ENDORSED TO ONCOMING SHIFT.
--- NOTE | 2019-04-11 19:34 | NUR ---
MS RN NOTES CALLED [facility] AND SPOKE TO ISMAEL, THEY ARE AWARE OF PATIENT'S RETURN. 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
--- NOTE | 2019-04-11 19:50 | NUR ---
MS RN NOTES RECEIVED ON BED A/O X3,NO SOB.FOR D/C BACK TO [facility] AWAITING FOR INFORMATION SYSTEMS OPERATOR.IN NO ACUTE DISTRESS.
[2019-04-11 20:12] VITALS: BP 116/61
[2019-04-11 21:00] VITALS: BP 116/61
--- NOTE | 2019-04-11 21:20 | NUR ---
MS RN NOTES FLEET SALES ASSOCIATE BY AMBULANCE GOING BACK TO [facility] IN STABLE CONDITION
== END 2019-04-11 21:15 | DRG 603 ==
LOC: ER 12:54 → MED 14:25
PROVIDERS: ADMIT Internal Medicine; ATTEND Internal Medicine
DX: L03.116 Cellulitis of left lower limb (principal); L03.115 Cellulitis of right lower limb; I48.91 Unspecified atrial fibrillation; I25.10 Atherosclerotic heart disease of native coronary artery without angina pectoris; Z86.73 Personal history of transient ischemic attack (TIA), and cerebral infarction without residual deficits; E66.9 Obesity, unspecified; F03.90 Unspecified dementia, unspecified severity, without behavioral disturbance, psychotic disturbance, mood disturbance, and anxiety; I11.0 Hypertensive heart disease with heart failure; I50.9 Heart failure, unspecified; Z79.01 Long term (current) use of anticoagulants; Z79.899 Other long term (current) drug therapy; Z88.0 Allergy status to penicillin; Z86.59 Personal history of other mental and behavioral disorders; Z88.8 Allergy status to other drugs, medicaments and biological substances; B37.2 Candidiasis of skin and nail; N61.0 Mastitis without abscess; K76.0 Fatty (change of) liver, not elsewhere classified
CPT/HCPCS: 36415; 71045-TC; 76705-TC; 80048-TC; 80053-TC; 80076-TC; 80202-TC; 83605-TC; 83735-TC; 83880; 84100-TC; 84484-TC; 85025-TC; 85730-TC; 87040-TC; 87081-TC; 87186-TC; 93970-TC; 94799-TC; G0378; J0696; J3370; J3490; J7030; J7060